=== PATIENT | male | born 1955 | race Caucasian/White ===

== ENCOUNTER 2023-02-11 23:21 | Emergency (ER) | payer BC, SELFPAY ==
[2023-02-11 23:25] VITALS: BP 155/89; PULSE 89; RESP 16; TEMP 35.9; O2SAT 96; BMI 23.7
[2023-02-11 23:29] VITALS: BP 155/89; PULSE 89; RESP 16; TEMP 35.9; O2SAT 96
--- NOTE | 2023-02-12 00:46 | EDS_ITS ---
HPI History of Present Illness Chief Complaint: Other, Pain/Inj Detail of Chief Complaint: Left forehead pain from recent shingles. Neuropathic pain. Informant: patient and spouse/S.O. Onset/Context/Timing Onset: Weeks Context: Gradual Onset Timing: Continuous Current Severity: Moderate Maximum Severity: Severe Narrative Narrative: 67-year-old male with history of diabetes. Diagnosed with left scalp shingles on January 22. At that time was treated with antivirals, prednisone and gabapentin. He initially got better but in the last 12 days he has had increased pain. He also followed up with an animal tech. He just states nothing is really controlling his pain well. He sits constantly there and it will pulsate and become a burning severe pain on his left forehead. He has tried Percocet, tramadol without any significant relief. They restarted him on acyclovir and prednisone again recently. He is also currently on gabapentin. The rash itself is much improved. Prior similar symptoms: Yes Recent Illness/Hospitalization: No PFSH PFSH Medical History Bone fracture Diabetes High blood pressure High cholesterol Seasonal allergies Home Medications Farxiga 10 mg tablet (dapagliflozin propanediol) 10 mg PO DAILY #30 tabs 12/26/20 [Rx Last Taken Unknown] flash glucose scanning reader #1 ea 12/26/20 [History Last Taken Unknown] flash glucose sensor #1 ea 12/26/20 [History Last Taken Unknown] OneTouch Ultra Test (blood sugar diagnostic) #100 ea 04/30/21 [Rx Last Taken Unknown] ezetimibe 10 mg tablet (Zetia) 10 mg PO DAILY #90 tabs 05/20/21 [Rx Last Taken Unknown] Dexcom G6 Director Of [employer] (blood-glucose meter,continuous) #1 ea 09/15/21 [Rx Last T ak Unknown] Dexcom G6 Sensor (blood-glucose sensor) #9 ea 09/28/22 [Rx Last Taken Unknown] Dexcom G6 Transmitter (blood-glucose transmitter) #1 ea 09/28/22 [Rx Last Taken Unknown] glimepiride 2 mg tablet 2 mg PO DAILY 12/28/22 [History Last Taken Unknown] insulin detemir U-100 100 unit/mL (3 mL) subcutaneous pen 40 unit subcut DAILY 12/28/22 [History Last Taken Unknown] insulin lispro 100 unit/mL subcutaneous pen 10 unit subcut QACDINNER 12/28/22 [History Last Taken Unknown] losartan 50 mg tablet 50 mg PO DAILY 12/28/22 [History Last Taken Unknown] metformin 1,000 mg tablet 1,000 mg PO BID 12/28/22 [History Last Taken Unknown] rosuvastatin 40 mg tablet 40 mg PO DAILY 12/28/22 [History Last Taken Unknown] Allergy/AdvReac Type Severity Reaction Status Date / Time No Known Allergies Allergy Verified 02/11/23 23:24 Family History Other CVA (cerebral vascular accident) Cervical cancer Diabetes Hypertension Social History Smoking Status: Never smoker alcohol intake: current alcohol intake frequency: holidays/special occasions only substance use type: does not use what type of physical activity do you participate in: walking frequency: daily ROS ROS ED ROS Narrative Denies recent illness. Left forehead shingles with neuropathic pain. Review of Systems ROS Unobtainable: Denies due to encephalopathy Constitutional Constitutional ED: Denies chills or fever(s) Eyes Eyes: Denies blurry vision ENT ENT ED: Denies ear pain Cardiovascular Cardiovascular: Denies chest pain Respiratory/Chest Respiratory/Chest: Denies cough or dyspnea Gastrointestinal Gastrointestinal: Denies abdominal pain, constipation, diarrhea, melena, nausea or vomiting Genitourinary Genitourinary ED: Denies dysuria or hematuria Musculoskeletal Musculoskeletal: Denies arthralgias Integumentary Denies abscess or Abrasions Neurologic Neurologic: Denies headache(s) Psychiatric Psychiatric: Denies anxiety or depression Endocrine Endocrinology: Denies cold intolerance Hematologic/Lymphatic Hematologic/Lymphatic: Reports none Allergic/Immunologic Allergic/Immunologic ED: Denies mouth swelling, tongue swelling or urticaria EXAM Physical Exam Narrative Exam Narrative: 67-year-old male. Vital signs are stable afebrile. Patient does not look septic or toxic. No distress. at bedside. H EENT exam pupils round and light his motions are intact. Resolving rash on his left forehead and nose scalp that previously was shingles. Currently there is no crusting. The rash is very faded. Neck nontender. Lungs are clear. Heart regular rhythm. Abdomen soft. Nontender. Moving all 4 extremities. Neurologically is awake alert with no focal motor deficits. Const Vital Signs: 02/11/23 23:25 02/11/23 23:29 02/11/23 23:48 Temperature 96.6 F L 96.6 F L Temperature Source Temporal Temporal Pulse Rate 89 89 Respiratory Rate 16 16 Respiratory Effort Normal Non-Labored Respiratory Pattern Normal Blood Pressure 155/89 H 155/89 H Blood Pressure Mean 111 111 Pulse Ox 96 96 Oxygen Delivery Method Room Air Room Air Positive well nourished and well developed; Negative for obese, cachectic, contractures or unkempt General Appearance ED: well developed and NAD; Negative for unkempt, cachectic, contractures, cyanotic, diaphoretic or pallor Nutritional Appearance: Negative for cachectic or obese HEENT Reports moist mucous membranes; Denies dry mucous membranes Negative for trauma or tenderness Mouth ED: No dry mucous membranes Mouth: No dry mucous membranes Eyes PERRL and EOMs intact bilaterally General Eye ED: Negative for pale conjunctiva or scleral icterus Neck no lymphadenopathy, supple and no JVD General: Negative for tenderness Lymph Lymphatic: Negative for other Chest Wall inspection of chest normal and palpation of chest normal Chest: Negative for other Resp normal respiratory effort and clear to auscultation bilaterally Effort and Inspection: Negative for retractions Auscultation: Negative for rales, rhonchi or wheezes Cardio regular rate, regular rhythm, S1 normal heart sound, S2 normal heart sound and no murmurs GI normal to inspection, nondistended, normoactive bowel sounds, non-tender, non- distended and no masses Inspection: Negative for abdominal distention Auscultation: normoactive bowel sounds Palpation: soft; Negative for tender or guarding Back/Spine no CVA tenderness General Back: Negative for CVA tenderness Cervical Spine: Negative for cervical spine tenderness Thoracic Spine / Upper Back: Negative for thoracic spinal tenderness Lumbar Spine / Lower Back: Negative for lumbar spinal tenderness Extremity normal to inspection General Extremety ED: Negative for edema or tenderness General Extremity: Negative for edema Neuro oriented x3 and CN's II-XII intact bilaterally Sensorium / Orientation: alert; Negative for orientation impaired, lethargic or stuporous Motor Exam: strength 5/5 throughout; Negative for general weakness or strength abnormal Psych mental status grossly normal Appearance: Negative for unkempt Attitude: No agitated Mood & Affect: Negative for depressed Skin No no rashes or lesions noted, no wounds and skin turgor normal Skin Narrative: Resolving shingles rash to left forehead. General Skin Exam: Negative for jaundice or pallor Lesions: No lesion noted Rashes: rashes noted Trauma: Negative for abrasion Wounds: Negative for wounds noted MDM MDM MDM Narrative Medical decision making narrative: 67-year-old male 3 weeks out of a shingles outbreak on his left forehead. Having worsening neuropathic pain. They have tried Percocet, tramadol without relief. Has had lidocaine patches without relief. Currently he is been restarted on his antiviral and on prednisone. He is also on gabapentin. He will be given IM shot of Dilaudid. I explained to both he and his there is really not managing bullet for this pain. They have a upcoming appointment to see a painter structural steel. History & Record Review Discussion w/independent historian: Patient and Family Discharge Plan Triage Chief Complaint: Other, Pain/Inj ED Provider: Xavi Hill Dx/Rx/DC Orders Clinical Impression: History of shingles, Neuropathic pain, History of diabetes mellitus Instructions: ED Shingles (Herpes Zoster) Prescriptions: No Action (DME) FreeStyle Marcos 14 Day Sensor Kit See Rx Instructions .ROUTE .MEDSUPPLY Qty: 1 Rx Instructions: As directed (DME) FreeStyle Marcos 14 Day Marion Misc See Rx Instructions .ROUTE .MEDSUPPLY Qty: 1 Rx Instructions: As directed Farxiga 10 mg tablet 10 mg PO DAILY Qty: 30 3RF metformin 1,000 mg tablet 1,000 mg PO BID losartan 50 mg tablet 50 mg PO DAILY rosuvastatin 40 mg tablet 40 mg PO DAILY insulin detemir U-100 100 unit/mL (3 mL) insulin pen 40 unit subcut DAILY insulin lispro 100 unit/mL insulin pen 10 unit subcut QACDINNER (DME) Dexcom G6 Director Of [employer] Research Misc See Rx Instructions .Route Qty: 1 0RF Rx Instructions: As directed glimepiride 2 mg tablet 2 mg PO DAILY (DME) OneTouch Ultra Test Strip See Rx Instructions .ROUTE .MEDSUPPLY Qty: 100 3RF Rx Instructions: As directed ezetimibe [Zetia] 10 mg tablet 10 mg PO DAILY Qty: 90 1RF (DME) Dexcom G6 Sensor Device See Rx Instructions .Route Qty: 9 1RF Rx Instructions: 1 sensor q 10 days (DME) Dexcom G6 Transmitter Device See Rx Instructions .Route Qty: 1 1RF Rx Instructions: 1 transmitter q 90 days Primary Care Provider: Geremias Kay Referrals: Geremias Kay MD [Primary Care Provider] - As Needed Activity Restrictions/Additional Instructions: Continue on your current medications. Follow-up with pain management. You may want to discuss with them possibly a nerve block. Disposition Disposition: Home, Self Care
--- OUTSIDE RECORDS SUMMARY | 2023-02-12 01:10 | XMS RPT_ITS | CCD ---
Author Name Unknown Address [address] [place] [address] Organization [facility] Care Team Providers Care Public Administration Teacher Name Role Phone Tali Tran MD Unavailable Unavailable Tali Tran Unavailable Unavailable Tali Tran Unavailable Unavailable Unavailable Tali Tran Referring Unavaila ble Tali Tran Primary Care Unavaila ble Tali Tran Attending Unavaila ble Tali Tran Referring Unavaila ble TranTali soriano Primary Care Unavaila ble Tali Tran Attending Unavaila Tali Morel MD Primary Care Provider Unavailable Tali Tran MD Primary Care Provider [phone] Tali Tran MD Unavailable Tali Tran MD Primary Care Provider Tali Tran MD Primary Care Provider Tali Tran MD Unavailable TALI TRAN Attending Unavailable TALI TRAN Primary Care Unavailable TALI TRAN Attending Unavailable TALI TRAN Primary Care Unavailable Sue Lanier OD Unavailable TALI TRAN Primary Care Unavaila ble PEDRO LUIS FITZGERALD Attending Unavailable SUE LANIER Attending Unavailabl e TALI TRAN Referring Unavaila ble TRANTALI Soriano Primary Care Unavaila ble SUE LANIER Attending Unavailabl e TALI TRAN Primary Care UnavailTali Mcpherson MD Primary Care Provider Medications Current Medications Medication Drug Class(es) Dates Sig (Normalized) Sig (Original) acetaminophen 325 mg / oxyCODONE hydrochloride 5 mg oral tablet (1 source) Opioid Agonist Start: 02-07-2023 End: 02-10-2023 take 1 tablet by mouth every six hours for pain oxyCODONE-acetamin ophen (Percocet) 5-325 mg tablet Indications: Postherpetic neuralgia Take 1 tablet by mouth every 6 hours if needed for severe pain (7 - 10) for up to 3 days. 5 tablet 0 02/07/2023 02/10/2023 Active dapagliflozin 10 mg oral tablet (7 sources) Sodium-Glucose Cotransporter 2 Inhibitor Start: 05-23-2021 take 1 tablet by mouth once daily before mealtime dapagliflozin (Farxiga) 10 mg Take 1 tablet (10 mg) by mouth once daily in the morning. Take before meals. 0 05/23/2021 Active gabapentin 300 mg oral capsule (1 source) Anti-epileptic Agent Start: 02-03-2023 gabapentin (Neurontin) 300 mg capsule Indications: PHN (postherpetic neuralgia) One a night for 1 week, then 1 twice a day for a week, then 1 three times a day 90 capsule 5 02/03/2023 Active glimepiride 2 mg oral tablet (7 sources) Sulfonylurea Start: 05-23-2021 take 1 tablet by mouth once daily glimepiride (Amaryl) 2 mg tablet Take 1 tablet (2 mg) by mouth once daily. 0 05/23/2021 Active insulin lispro (HumaLOG) 100 unit/mL injection (3 sources) Start: 07-25-2019 inject 10 [IU] by subcutaneous injection once daily before mealtime insulin lispro (HumaLOG) 100 unit/mL injection Inject 10 Units under the skin once daily in the evening. Take before meals. 0 07/25/2019 Active losartan potassium 50 mg oral tablet (17 sources) Angiotensin 2 Receptor Dominguez Start: 04-18-2019 End: 01-22-2024 take 1 tablet by mouth once daily losartan (Cozaar) 50 mg tablet Indications: Primary hypertension Take 1 tablet (50 mg) by mouth once daily. 90 tablet 3 01/22/2023 01/22/2024 Active Completed/Discontinued Medications Medication Drug Class(es) Dates Sig (Normalized) Sig (Original) doxycycline hyclate 100 mg oral tablet (1 source) Tetracycline-cla ss Drug Start: 08-07-2019 take 1 tablet by mouth once daily Doxycycline Hyclate 100 MG Oral Tablet TAKE 1 TABLET EVERY 12 HOURS DAILY. Quantity: 14 Refills: 0 Ordered: 10-Apr-2022 Tali Tran MD Start : 07-Aug-2019 Active FreeStyle Marcos 14 Day [place] Device (1 source) Start: 05-24-2020 FreeStyle Marcos 14 Day [place] Device USE DIRECTED Quantity: 1 Refills: 0 Tali Tran MD Start : 24-May-2020 Active FreeStyle Marcos 14 Day Sensor (1 source) Start: 05-24-2020 FreeStyle Marcos 14 Day Sensor USE 1 SENSOR EVERY 14 DAYS Quantity: 6 Refills: 3 Tali Tran MD Start : 24-May-2020 Active 1 ml HYDROmorphone hydrochloride 1 mg/ml cartridge (1 source) Opioid Agonist Start: 02-07-2023 End: 02-07-2023 HYDROmorphone (Dilaudid) injection 1 mg 3 ml insulin degludec 100 unt/ml pen injector (5 sources) Insulin Analog Start: 02-17-2018 insulin degludec (TRESIBA FLEXTOUCH U-100) 100 unit/mL (3 mL) injection pen 3 ml insulin detemir 100 unt/ml pen injector (16 sources) Insulin Analog Start: 11-04-2020 LEVEMIR FLEXTOUCH U-100 INSULIN 100 unit/mL (3 mL) injection pen Problems Active Problems Problem Classification Problem Date Documented Da te Episodic/Chronic Blindness and vision defects (6 sources) Bilateral myopia of eyes; Translations: [Myopia, bilateral] Episodic Cataract (8 sources) Bilateral senile combined form cataracts of eyes; Translations: [Combined forms of age-related cataract, bilateral] Onset: 11-11-2020 Chronic Diabetes mellitus without complication (20 sources) Type 2 diabetes mellitus; Translations: [Diabetes mellitus without mention of complication, type II or unspecified type, not stated as uncontrolled] Onset: 11-11-2020 Chronic Disorders of lipid metabolism (15 sources) Hyperlipidemia; Translations: [Other and unspecified hyperlipidemia] Onset: 06-01-2022 06-02-2022 Chronic Essential hypertension (17 sources) Hypertensive disorder; Translations: [Unspecified essential hypertension] Onset: 06-01-2022 06-02-2022 Chronic Glaucoma (2 sources) Ocular hypertension; Translations: [Ocular hypertension, bilateral] Onset: 01-29-2023 01-29-2023 Chronic Immunizations and screening for infectious disease (20 sources) Patient encounter status; Translations: [Other specified vaccination] Episodic Inflammation; infection of eye (except that caused by tuberculosis or sexually transmitteddisease) (4 sources) Herpes zoster ophthalmicus; Translations: [Zoster ocular disease, unspecified] Onset: 01-29-2023 01-29-2023 Episodic Other eye disorders (1 source) Bilateral vitreous floaters; Translations: [Other vitreous opacities, bilateral] 01-04-2023 Chronic Other male genital disorders (5 sources) Secondary erectile dysfunction; Translations: [Erectile dysfunction due to diseases classified elsewhere] Onset: 06-02-2022 06-02-2022 Chronic Other male genital disorders (1 source) Erectile dysfunction due to diseases classified elsewhere; Translations: [Erectile dysfunction due to diseases classified elsewhere] Onset: 06-02-2022 Chronic Viral infection (5 sources) Herpes zoster without complication; Translations: [Zoster without complications] Onset: 01-22-2023 01-22-2023 Episodic Past or Other Problems Problem Classification Problem Date Documented Da te Episodic/Chronic E Codes: Natural/environment (8 sources) Tick bite; Translations: [Insect bite, nonvenomous, of other, multiple, and unspecified sites, without mention of infection] Resolved: 10-27-2019 Episodic Unclassified (2 sources) Onset: 12-02-2022 12-02-2022 NEGATED: Highlighted row has not occurred!Residual codes; unclassified (3 sources) Disease Episodic Results Test Name Value Interpretation Reference Range Facil ity Vital Signs Date Time Vital Sign Value Performing Clinician Faci litiris 02-07-2023 16:39-0500 Diastolic blood pressure 83 mm[Hg] Kenton Levin DO Work Phone: [facility] 02-07-2023 16:39-0500 Heart rate 79 /min Kenton Levin DO Work Phone: [facility] 02-07-2023 16:39-0500 Respiratory rate 18 /min Kenton Levin DO Work Phone: [facility] 02-07-2023 16:39-0500 SaO2% (BldA) [Mass fraction] 97 % Kenton Levin DO Work Phone: [facility] 02-07-2023 16:39-0500 Systolic blood pressure 142 mm[Hg] Kenton Levin DO Work Phone: [facility] 02-07-2023 15:25-0500 Body height 188 cm Kenton Levin DO Work Phone: [facility] 02-07-2023 15:25-0500 Body mass index (BMI) [Ratio] 24.65 kg/m2 Kenton Levin DO Work Phone: [facility] 02-07-2023 15:25-0500 Body temperature 97.5 [degF] Kenton Levin DO Work Phone: [facility] 02-07-2023 15:25-0500 Body weight 87.09 kg Kenton Levin DO Work Phone: [facility] 01-22-2023 11:10-0500 Body height 188 cm Tali Tran MD Work Phone: [facility] 01-22-2023 11:10-0500 Body mass index (BMI) [Ratio] 25.16 kg/m2 Tali Tran MD Work Phone: [facility] 01-22-2023 11:10-0500 Body weight 88.91 kg Tali Tran MD Work Phone: [facility] 01-22-2023 11:10-0500 Diastolic blood pressure 82 mm[Hg] Tali Tran MD Work Phone: [facility] 01-22-2023 11:10-0500 Heart rate 80 /min Tali Tran MD Work Phone: [facility] 01-22-2023 11:10-0500 SaO2% (BldA) [Mass fraction] 95 % Tali Tran MD Work Phone: [facility] 01-22-2023 11:10-0500 Systolic blood pressure 140 mm[Hg] Tali Tran MD Work Phone: [facility] 06-02-2022 08:19-0400 Body height 188 cm Tali Tran MD Work Phone: [facility] 06-02-2022 08:19-0400 Body mass index (BMI) [Ratio] 25.08 kg/m2 Tali Tran MD Work Phone: [facility] 06-02-2022 08:19-0400 Body weight 88.59 kg Tali Tran MD Work Phone: [facility] 06-02-2022 08:19-0400 Diastolic blood pressure 80 mm[Hg] Tali Tran MD Work Phone: [facility] 06-02-2022 08:19-0400 Heart rate 68 /min Tali Tran MD Work Phone: [facility] 06-02-2022 08:19-0400 SaO2% (BldA) [Mass fraction] 94 % Tali Tran MD Work Phone: [facility] 06-02-2022 08:19-0400 Systolic blood pressure 140 mm[Hg] Tali Tran MD Work Phone: [facility] 11-25-2021 08:25-0400 Body height 187.96 cm Tali Tran Work Phone: -[facility] Work Phone: 11-25-2021 08:25-0400 Body mass index (BMI) [Ratio] 24.98 kg/m2 Tali Tran Work Phone: -[facility] Work Phone: 11-25-2021 08:25-0400 Body surface area Derived from formula 2.15 m2 Tali Tran Work Phone: [facility] Work Phone: 11-25-2021 08:25-0400 Body weight 88.25 kg Tali Tran Work Phone: [facility] Work Phone: 11-25-2021 08:25-0400 Diastolic blood pressure 90 mm[Hg] Tali Tran Work Phone: [facility] Work Phone: 11-25-2021 08:25-0400 Heart rate 67 /min Tali Tran Work Phone: [facility] Work Phone: 11-25-2021 08:25-0400 SaO2% (BldA) [Mass fraction] 95 % Tali Tran Work Phone: -[facility] [employer] [facility] Work Phone: 11-25-2021 08:25-0400 Systolic blood pressure 130 mm[Hg] Tali Tran Work Phone: -[facility] [employer] [facility] Work Phone: 05-23-2021 08:21-0400 Body height 187.96 cm Tali Tran Work Phone: [facility] Work Phone: 05-23-2021 08:21-0400 Body mass index (BMI) [Ratio] 24.92 kg/m2 Tali Tran Work Phone: [facility] Work Phone: 05-23-2021 08:21-0400 Body surface area Derived from formula 2.15 m2 Tali Tran Work Phone: [facility] Work Phone: 05-23-2021 08:21-0400 Body weight 88.06 kg Tali Tran Work Phone: [facility] Work Phone: 05-23-2021 08:21-0400 Diastolic blood pressure 72 mm[Hg] Tali Tran Work Phone: [facility] Work Phone: 05-23-2021 08:21-0400 Heart rate 64 /min Tali Tran Work Phone: [facility] Work Phone: 05-23-2021 08:21-0400 SaO2% (BldA) [Mass fraction] 96 % Tali Tran Work Phone: [facility] Work Phone: 05-23-2021 08:21-0400 Systolic blood pressure 140 mm[Hg] Tali Tran Work Phone: [facility] Work Phone: 11-22-2020 08:10-0400 Body height 187.96 cm Tali Tran Work Phone: [facility] Work Phone: 11-22-2020 08:10-0400 Body mass index (BMI) [Ratio] 24.27 kg/m2 Tali Tran Work Phone: [facility] Work Phone: 11-22-2020 08:10-0400 Body surface area Derived from formula 2.12 m2 Tali Tran Work Phone: [facility] Work Phone: 11-22-2020 08:10-0400 Body temperature 97.1 [degF] Tali Tran Work Phone: [employer] [employer] [facility] Work Phone: 11-22-2020 08:10-0400 Body weight 85.76 kg Tali Tran Work Phone: [employer] [facility] Work Phone: 11-22-2020 08:10-0400 Diastolic blood pressure 72 mm[Hg] Tali Tran Work Phone: [employer] [facility] Work Phone: 11-22-2020 08:10-0400 Heart rate 66 /min Tali Tran Work Phone: [employer] [facility] Work Phone: 11-22-2020 08:10-0400 SaO2% (BldA) [Mass fraction] 96 % Tali Tran Work Phone: [employer] [facility] Work Phone: 11-22-2020 08:10-0400 Systolic blood pressure 140 mm[Hg] Tali Tran Work Phone: [employer] [facility] Work Phone: 05-24-2020 10:25-0400 Body height 187.96 cm Tali Tran MD [facility] [employer] Work Phone: 05-24-2020 10:25-0400 Body mass index (BMI) [Ratio] 24.78 kg/m2 Tali Tran MD [facility] [employer] Work Phone: 05-24-2020 10:25-0400 Body surface area Derived from formula 2.14 m2 Tali Tran MD [facility] [employer] Work Phone: 05-24-2020 10:25-0400 Body temperature 97.5 [degF] Tali Tran MD [facility] [employer] Work Phone: 05-24-2020 10:25-0400 Body weight 87.54 kg Tali Tran MD [facility] [employer] Work Phone: 05-24-2020 10:25-0400 Diastolic blood pressure 74 mm[Hg] Tali Tran MD [facility] [employer] Work Phone: 05-24-2020 10:25-0400 Heart rate 70 /min Tali Tran MD [facility] [employer] Work Phone: 05-24-2020 10:25-0400 SaO2% (BldA) [Mass fraction] 97 % Tali Tran MD [facility] [employer] Work Phone: 05-24-2020 10:25-040 Systolic blood pressure 140 mm[Hg] Tali Tran MD [facility] [employer] Work Phone: Encounters Encounter Date Encounter Type Care Provider Facility Start: 02-07-2023 End: 02-07-2023 Emergency department patient visit Kenton G Ollie DIOP Work Phone: [facility] Emergency Medicine Procedures Date Procedure Procedure Detail Performing Clinician Start: 01-29-2023 Computerized ophthal alejandrina imaging optic nerve Pedro Luis Fitzgerald MD Work Phone: Start: 11-26-2022 Lipid 1996 panel - S landry or Plasma Tali Tran MD Work Phone: Colonoscopy Tali soriano MD Plan of Treatment Date Care Activity Detail Author Start: 11-27-2027 Prostate Cancer Screening Discussion Prostate Cancer Screening Discussion [facility] Start: 11-27-2027 Prostate specific antigen measurement Prostate Cancer Screening Discussion [facility] Start: 01-30-2024 Glaucoma screening Dilated Retinal Exam [facility] Start: 01-05-2024 Glaucoma screening Diabetes: Retinopathy Screening [facility] Start: 01-05-2024 Hepatitis C antibody, confirmatory test Dilated Retinal Exam [facility] Start: 11-27-2023 Hepatitis B surface antibody level LDL Cholesterol [facility] Start: 11-27-2023 Lipid panel Lipid Panel [facility] Start: 11-27-2023 Urine screening for protein Diabetes: Urine Protein Screening [facility] Start: 06-09-2023 End: 06-09-2023 Patient encounter procedure 06/09/2023 8:00 AM EDT Office Visit [facility] [address] [place] [id number] Tali Tran MD [address] [place] [address] [facility] Start: 02-26-2023 Hemoglobin A1c measurement Diabetes: Hemoglobin A1C [facility] Start: 12-22-2022 Hepatitis C antibody, confirmatory test DILATED RETINAL EXAM [facility] Start: 11-01-2022 Screening for malignant neoplasm of colon [facility] Start: 10-16-2022 Covid-19 Vaccine () Covid-19 Vaccine () [facility] Start: 10-16-2022 Influenza vaccination [facility] Start: 06-02-2022 EPV, Provider: Tali Tran, Status: Pen, Time: 8:20 AM EPV, Provider: Tali Tran, Status: Pen, Time: 8:20 AM -[facility] Work Phone: Start: 02-15-2022 Advance Directive Discussion Advance Directive Discussion [facility] Start: 02-15-2022 Depression Assessment Depression Assessment [facility] Start: 11-25-2021 EPV, Provider: Tali Tran, Status: Pen, Time: 8:20 AM EPV, Provider: Tali Tran, Status: Pen, Time: 8:20 AM [facility] Work Phone: Start: 10-16-2021 Influenza vaccination INFLUENZA (#1) [facility] Start: 2021 ADVANCE DIRECTIVE DISCUSSION ADVANCE DIRECTIVE DISCUSSION [facility] Start: 2021 PNEUMOCOCCAL: 65+ (1 - PCV) PNEUMOCOCCAL: 65+ (1 - PCV) [facility] Start: 05-23-2021 EPV, Provider: Tali Tran, Status: Pen, Time: 8:20 AM EPV, Provider: Tali Tran, Status: Pen, Time: 8:20 AM [facility] Work Phone: Start: 02-28-2021 COVID-19 VACCINE (4 - Booster for Moderna series) COVID-19 VACCINE (4 - Booster for Moderna series) [facility] Start: 02-28-2021 COVID-19 Vaccine (4 - Moderna series) COVID-19 Vaccine (4 - Moderna series) [facility] Start: 02-15-2021 DEPRESSION ASSESSMENT DEPRESSION ASSESSMENT [facility] Start: 11-22-2020 EPV, Provider: Tali Tran, Status: Pen, Time: 8:20 AM EPV, Provider: Tali Tran, Status: Pen, Time: 8:20 AM [facility] Work Phone: Start: 05-24-2020 Albumin, Urine Spot Albumin, Urine Spot [facility] Work Phone: Start: 05-24-2020 Assay of thyroid stimulating hormone tsh TSH - Thyroid Stimulating Hormone, Serum [facility] Work Phone: Start: 05-24-2020 Comprehensive metabolic 2000 panel - Serum or Plasma Comprehensive Metabolic Panel [facility] [employer] [facility] Work Phone: Start: 05-24-2020 Hemoglobin glycosylated a1c Hemoglobin A1C [facility] Work Phone: Start: 05-24-2020 Lipid panel Lipid Panel [facility] [employer] Phone: Start: 05-24-2020 PSA screening Prostate Spec.Ag, Screen [facility] Work Phone: Start: 2016 Hepatitis B Vaccine (1 of 3 - Risk 3-dose series) Hepatitis B Vaccine (1 of 3 - Risk 3-dose series) [facility] Start: 2016 RSV Vaccine (1 - 1-dose 60+ series) RSV Vaccine (1 - 1-dose 60+ series) [facility] Start: 09-06-2011 PROSTATE CANCER SCREENING DISCUSSION PROSTATE CANCER SCREENING DISCUSSION [facility] Start: 2006 SHINGRIX VACCINE (1 of 2) SHINGRIX VACCINE (1 of 2) [facility] Start: 2006 Zoster Vaccines (1 of 2) Zoster Vaccines (1 of 2) [facility] Start: 2001 COLOGUARD (FIT-DNA) COLOGUARD (FIT-DNA) [facility] Start: [address] [facility] Start: 2001 COLORECTAL CANCER SCREENING COLORECTAL CANCER SCREENING [facility] Start: [address] [facility] Start: 2001 FECAL OCCULT BLOOD FECAL OCCULT BLOOD [facility] Start: 2001 Screening for malignant neoplasm of colon [facility] Start: [address] [facility] Start: 1978 DTaP/Tdap/Td Vaccines (1 - Tdap) DTaP/Tdap/Td Vaccines (1 - Tdap) [facility] Start: 09-06-[address] [facility] Start: 09-06-1975 Urine screening for protein Diabetes: Urine Protein Screening [facility] Start: 1974 Annual PCP Team Chronic Disease Visit Annual PCP Team Chronic Disease Visit [facility] Start: 1974 BP Controlled (<130/80) BP Controlled (<130/80) [facility] Start: 1974 Hepatitis B surface antibody level LDL CHOLESTEROL [facility] Start: 1974 HEPATITIS C SCREENING HEPATITIS C SCREENING [facility] Start: 1974 Hepatitis C screening Hepatitis C Screening [facility] Start: 1974 HIV SCREENING HIV SCREENING [facility] Start: 1966 3 comp foot exam completed DIABETIC FOOT EXAM [facility] Start: 1966 Diabetic foot examination [facility] Start: 1966 Hepatitis B screening URINE ALBUMIN:CREATININE RATIO [facility] Start: 1966 Ophthalmic examination and evaluation Diabetes: Retinopathy Screening [facility] Start: 1961 Hemoglobin A1c measurement HbA1C [facility] Start: 1961 Hemoglobin A1c/Hemoglobin.total in Blood HBA1C [facility] Start: 1956 Annual wellness visit Medicare Initial Physical (IPPE) [facility] Start: 1956 Hemoglobin A1c measurement Diabetes: Hemoglobin A1C [facility] Start: 1956 Lipid panel Lipid Panel [facility] Start: 1956 Screening for malignant neoplasm of colon [facility] Start: 1956 Yearly Adult Physical Yearly Adult Physical [facility] Assay of thyroid stimulating hormone tsh TSH - Thyroid Stimulating Hormone, Serum [facility] [employer] Work Phone: Immunizations Immunization Date Immunization Notes Care Provider Denise valejoshua 11-25-2021 Prevnar 20 0.5 ML Intramuscular Suspension Prefilled Syringe; Translations: [Prevnar 20 0.5 ML Intramuscular Suspension Prefilled Syringe] Tali Tran Work Phone: [facility] Work Phone: Payers Date Payer Category Payer Medicare MEDICARE MEDICAR E PART A [id number] 2021-Present [address] [place] [address] [id number] 2021 Unknown 2021 Unknown [id number] 1955 Unknown [id number] 1956 Unknown [id number] 1956 Unknown [id number] 1956 Unknown [id number] Medicare [id number] Social History Date Type Detail Facility Assertion Tobacco smoking consumption unknown (finding) [facility] [employer] Work Phone: Start: 01-04-2023 End: 01-22-2023 Non-smoker Non-smoker -[employer] [facility] Work Phone: Start: 11-11-2020 End: 12-02-2022 Tobacco smoking status NHIS Never smoked tobacco [facility] Start: 11-11-2020 End: 12-02-2022 Tobacco use and exposure Smokeless tobacco non-user [facility] Start: 12-22-2021 End: 01-22-2023 Alcohol intake Ex-drinker (finding) [facility] Start: 1955 Sex Assigned At Not on file [facility] Start: 12-12-2021 End: 02-07-2023 Exposure to SARS-CoV-2 (event) Not sure [facility] Start: 01-04-2023 End: 01-22-2023 Gender identity Not on file [facility] Work Phone: National Score (1-100), lower number is lower risk [address] [facility] NEGATED: Highlighted rowStart: NINF History of tobacco use Passive smoker [facility] Work Phone: Medical Equipment Procedure Code Equipment Code Equipment Origin al Text Equipment Identifier Dates Blood Glucose Te st In Vitro Strip TEST BG ONCE DAILY DX E11.9 Quantity: 100 Refills: 3 Tali Tran MD Start : 18-Apr-2019 Active Start: 04-18-2019 Lancets TEST BG ONCE DAILY DX E11.9 Quantity: 100 Refills: 3 Start : 18-Apr-2019 Active Start: 04-18-2019 Functional Status Date Assessment Result Facility NEGATED: Highlighted row Functional performance Functional status health issues are not documented Disease [facility] [employer] Work Phone: Mental Status Date Assessment Result Facility NEGATED: Highlighted row Cognitive function [Interpretation] Cognitive status health issues are not documented Disease [facility] Work Phone: Clinical Notes 11-23-2019 to 02-07-2023 Kenton Levin DO - 02/07/2023 3:18 PM Kimani Levin DO - 02/07/2023 3:18 PM ESTPatient InstructionsPedro Luis Fitzgerald MD - 01/29/2023 4:14 PM ESTPatient InstructionsPatient Instructions Note Date & Type Note Facility 02-07-2023 Emergency department Note HPI Chief Complaint Patient presents with Facial Pain Patient states he was diagnosed with shingles 2 weeks ago on the left side of his face, states lesions have improved but started to have pain on Wednesday and states pain is severe. He is taking gabapentin and was given Tramadol on Wednesday without improvement Patient presents to the emergency department secondary to facial pain. Further history reveals the patient was diagnosed with herpes zoster several weeks ago. He was treated with antivirals and is currently taking gabapentin. He was also seen and cleared by ophthalmology. The patient states that his rash went away sometime ago however he still having pain in the distribution of where the rash once was. He states that tramadol is not helping his pain. He describes it as a burning, prickling pain over the left side of the scalp and face. 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 used: No Jinny Coma Scale Score: 15 Patient History Past Medical History: Diagnosis Date Bitten or stung by nonvenomous insect and other nonvenomous arthropods, initial encounter 08/07/2019 Tick bite Past Surgical History: Procedure Laterality Date OTHER SURGICAL HISTORY 04/18/2019 Tibia fracture repair OTHER SURGICAL HISTORY 04/18/2019 Colonoscopy OTHER SURGICAL HISTORY 04/18/2019 Fracture repair OTHER SURGICAL HISTORY 04/18/2019 Vasectomy Family History Problem Relation Name Age of Onset Diabetes type II Mother Diabetes type II Father Hypertension Father Social History Tobacco Use Smoking status: Never Passive exposure: Never Smokeless tobacco: Never Vaping Use Vaping Use: Never used Substance Use Topics Alcohol use: Not Currently Drug use: Defer Physical Exam ED Triage Vitals [02/07/23 1525] Temp Heart Rate Resp BP 36.4 C (97.5 F) 89 17 154/86 SpO2 Temp src Heart Rate Source Patient Position 93 % -- Monitor -- BP Location FiO2 (%) -- -- Physical Exam Vitals and nursing note reviewed. Constitutional: General: He is not in acute distress. Appearance: Normal appearance. He is normal weight. He is not ill-appearing, toxic-appearing or diaphoretic. HENT: Head: Normocephalic and atraumatic. Nose: Nose normal. No rhinorrhea. Eyes: Extraocular Movements: Extraocular movements intact. Conjunctiva/sclera: Conjunctivae normal. Pupils: Pupils are equal, round, and reactive to light. Comments: Left eye is grossly unremarkable. Pupils are equal. No erythema to the sclera. Neck: Comments: Trachea is midline Cardiovascular: Rate and Rhythm: Normal rate and regular rhythm. Heart sounds: No murmur heard. Pulmonary: Effort: Pulmonary effort is normal. Breath sounds: Normal breath sounds. No wheezing. Abdominal: General: Abdomen is flat. Bowel sounds are normal. There is no distension. Palpations: Abdomen is soft. Tenderness: There is no abdominal tenderness. Musculoskeletal: General: Normal range of motion. Cervical back: Normal range of motion. Skin: General: Skin is warm and dry. Findings: No lesion or rash. Comments: There are no facial skin lesions of any kind. No evidence of cellulitis Neurological: General: No focal deficit present. Mental Status: He is alert and oriented to person, place, and time. Mental status is at baseline. Psychiatric: Mood and Affect: Mood normal. Behavior: Behavior normal. Thought Content: Thought content normal. Judgment: Judgment normal. ED Course & MDM Diagnoses as of 02/07/231610 Postherpetic neuralgia Medical Decision Making Patient's history and physical examination is suggestive of postherpetic neuralgia. Patient will be given IM Dilaudid here and a prescription for Percocet. The patient was specifically instructed by myself to not take Percocet and tramadol at the same time. Instructed to continue gabapentin and follow-up with his private physician. Return if worse. Procedure Procedures Kenton Levin DO 02/07/231610 documented in this encounter [facility] Work Phone: 02-07-2023 Physician Emergency department Note HPI Chief Complaint Patient presents with Facial Pain Patient states he was diagnosed with shingles 2 weeks ago on the left side of his face, states lesions have improved but started to have pain on Wednesday and states pain is severe. He is taking gabapentin and was given Tramadol on Wednesday without improvement Patient presents to the emergency department secondary to facial pain. Further history reveals the patient was diagnosed with herpes zoster several weeks ago. He was treated with antivirals and is currently taking gabapentin. He was also seen and cleared by ophthalmology. The patient states that his rash went away sometime ago however he still having pain in the distribution of where the rash once was. He states that tramadol is not helping his pain. He describes it as a burning, prickling pain over the left side of the scalp and face. 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 used: No Jinny Coma Scale Score: 15 Patient History Past Medical History: Diagnosis Date Bitten or stung by nonvenomous insect and other nonvenomous arthropods, initial encounter 08/07/2019 Tick bite Past Surgical History: Procedure Laterality Date OTHER SURGICAL HISTORY 04/18/2019 Tibia fracture repair OTHER SURGICAL HISTORY 04/18/2019 Colonoscopy OTHER SURGICAL HISTORY 04/18/2019 Fracture repair OTHER SURGICAL HISTORY 04/18/2019 Vasectomy Family History Problem Relation Name Age of Onset Diabetes type II Mother Diabetes type II Father Hypertension Father Social History Tobacco Use Smoking status: Never Passive exposure: Never Smokeless tobacco: Never Vaping Use Vaping Use: Never used Substance Use Topics Alcohol use: Not Currently Drug use: Defer Physical Exam ED Triage Vitals [02/07/23 1525] Temp Heart Rate Resp BP 36.4 C (97.5 F) 89 17 154/86 SpO2 Temp src Heart Rate Source Patient Position 93 % -- Monitor -- BP Location FiO2 (%) -- -- Physical Exam Vitals and nursing note reviewed. Constitutional: General: He is not in acute distress. Appearance: Normal appearance. He is normal weight. He is not ill-appearing, toxic-appearing or diaphoretic. HENT: Head: Normocephalic and atraumatic. Nose: Nose normal. No rhinorrhea. Eyes: Extraocular Movements: Extraocular movements intact. Conjunctiva/sclera: Conjunctivae normal. Pupils: Pupils are equal, round, and reactive to light. Comments: Left eye is grossly unremarkable. Pupils are equal. No erythema to the sclera. Neck: Comments: Trachea is midline Cardiovascular: Rate and Rhythm: Normal rate and regular rhythm. Heart sounds: No murmur heard. Pulmonary: Effort: Pulmonary effort is normal. Breath sounds: Normal breath sounds. No wheezing. Abdominal: General: Abdomen is flat. Bowel sounds are normal. There is no distension. Palpations: Abdomen is soft. Tenderness: There is no abdominal tenderness. Musculoskeletal: General: Normal range of motion. Cervical back: Normal range of motion. Skin: General: Skin is warm and dry. Findings: No lesion or rash. Comments: There are no facial skin lesions of any kind. No evidence of cellulitis Neurological: General: No focal deficit present. Mental Status: He is alert and oriented to person, place, and time. Mental status is at baseline. Psychiatric: Mood and Affect: Mood normal. Behavior: Behavior normal. Thought Content: Thought content normal. Judgment: Judgment normal. ED Course & MDM Diagnoses as of 02/07/23 1611 Postherpetic neuralgia Medical Decision Making Patient's history and physical examination is suggestive of postherpetic neuralgia. Patient will be given IM Dilaudid here and a prescription for Percocet. The patient was specifically instructed by myself to not take Percocet and tramadol at the same time. Instructed to continue gabapentin and follow-up with his private physician. Return if worse. Procedure Procedures Kenton Levin DO 02/07/231610 [facility] Work Phone: 01-29-2023 Note HNO ID: [id number] Author: Pedro Luis Fitzgerald MD Service: ? Author Type: Physician Type: Progress Notes Filed: 01/29/2023 4:52 PM Note Text: ASSESSMENT/PLAN: 1. 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 Herpes zoster pseudodendrites/left eye - ICD9: 053.29, ICD10: B02.39 Continue Valtrex and oral Prednisone as directed by Dr. Tran Continue: Systane Complete Artificial Tears - Use 1 Drop into both eyes three times a day. Begin: Genteal gel, one application at bedtime 3. Ocular hypertension, bilateral - ICD9: 365.04, ICD10: H40.053 Visual field next visit 4. Type 2 diabetes mellitus without retinopathy (HCC) - ICD9: 250.00, ICD10: E11.9 Continue Diabetes Mellitus care with Dr. Tran Please keep your blood sugar under good control to minimize risk of ocular complications from diabetes. 5. Combined form of senile cataract of both eyes - ICD9: 366.19, ICD10: H25.813 Not visually significant at this time 6. Essential hypertension - ICD9: 401.9, ICD10: I10 Continue care with primary care physician Pedro Luis Fitzgerald MD I have confirmed and edited as necessary the relevant ophthalmic history, review of systems, surgical history, and ophthalmological examination findings as obtained by the ophthalmic technical staff. I have seen and examined Neo Cole. I have discussed the examination findings, diagnosis, and treatment options with Neo Cole and/or his family. I have also reviewed and agree with the assessment and plan as stated above and agree with all its relevant components. I gave the patient the opportunity to ask questions about the findings, diagnosis, and treatment options. [facility] 01-29-2023 Instructions Pedro Luis Fitzgerald MD - 01/29/2023 4:51 PM EST Continue Valtrex and oral Prednisone as directed by Dr. Tran Continue: Systane Complete Artificial Tears - Use 1 Drop into both eyes three times a day. Begin: Genteal gel, one application at bedtime If you have any questions please contact our office at [phone]. After office hours or on the weekend, please call Dr. Fitzgerald on his cell phone at [phone]. documented in this encounter [facility] 01-29-2023 History of Presen t illness Narrative ASSESSMENT/PLAN: 1. 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 Herpes zoster pseudodendrites/left eye - ICD9: 053.29, ICD10: B02.39 Continue Valtrex and oral Prednisone as directed by Dr. Tran Continue: Systane Complete Artificial Tears - Use 1 Drop into both eyes three times a day. Begin: Genteal gel, one application at bedtime 3. Ocular hypertension, bilateral - ICD9: 365.04, ICD10: H40.053 Visual field next visit 4. Type 2 diabetes mellitus without retinopathy (HCC) - ICD9: 250.00, ICD10: E11.9 Continue Diabetes Mellitus care with Dr. Tran Please keep your blood sugar under good control to minimize risk of ocular complications from diabetes. 5. Combined form of senile cataract of both eyes - ICD9: 366.19, ICD10: H25.813 Not visually significant at this time 6. Essential hypertension - ICD9: 401.9, ICD10: I10 Continue care with primary care physician Pedro Luis Fitzgerald MD I have confirmed and edited as necessary the relevant ophthalmic history, review of systems, surgical history, and ophthalmological examination findings as obtained by the ophthalmic technical staff. I have seen and examined Neo Cole. I have discussed the examination findings, diagnosis, and treatment options with Neo Cole and/or his family. I have also reviewed and agree with the assessment and plan as stated above and agree with all its relevant components. I gave the patient the opportunity to ask questions about the findings, diagnosis, and treatment options. documented in this encounter [facility] 01-25-2023 Note HNO ID: [id number] Author: Sue Lanier OD Service: ? Author Type: APPRAISAL ANALYST Type: Progress Notes Filed: 01/25/2023 11:57 AM Note Text: ASSESSMENT/PLAN: 1. HZV (herpes zoster virus) post herpetic neuralgia - ICD9: 053.19, ICD10: B02.29 Current Ophthalmic Meds valACYclovir (VALTREX) 1 gram tablet As directed by Dr. Tran Suggested artificial tears three times a day. Return as directed. Sue Lanier OD I have confirmed and edited as necessary the relevant ophthalmic history, ROS, and the neuro exam findings as obtained by others. I have seen and examined this patient. [facility] 01-25-2023 Instructions Sue Lanier OD - 01/25/2023 11:55 AM EST ASSESSMENT/PLAN: 1. HZV (herpes zoster virus) post herpetic neuralgia - ICD9: 053.19, ICD10: B02.29 Current Ophthalmic Meds valACYclovir (VALTREX) 1 gram tablet As directed by Dr. Tran Suggested artificial tears three times a day. Return as directed. documented in this encounter [facility] 01-25-2023 History of Presen t illness Narrative ASSESSMENT/PLAN: 1. HZV (herpes zoster virus) post herpetic neuralgia - ICD9: 053.19, ICD10: B02.29 Current Ophthalmic Meds valACYclovir (VALTREX) 1 gram tablet As directed by Dr. Tran Suggested artificial tears three times a day. Return as directed. Sue Lanier, OD I have confirmed and edited as necessary the relevant ophthalmic history, ROS, and the neuro exam findings as obtained by others. I have seen and examined this patient. documented in this encounter [facility] 01-22-2023 History of Presen t illness Narrative Subjective Patient ID: Neo Cole is a 67 y.o. male who presents for rash top of head,eye brow (x1day). HPI Patient with pain for few days started developed rash yesterday. Review of Systems Constitutional: Negative for activity change, appetite change, chills, fatigue and fever. Respiratory: Negative for cough, chest tightness and shortness of breath. Cardiovascular: Negative for chest pain, palpitations and leg swelling. Gastrointestinal: Negative for abdominal pain, constipation, diarrhea, nausea and vomiting. Skin: Positive for rash. Objective BP 140/82 Pulse 80 Ht 1.88 m (6' 2 ) Wt 88.9 kg (196 lb) SpO2 95% BMI 25.16 kg/m Physical Exam Vitals and nursing note reviewed. Constitutional: Appearance: Normal appearance. He is normal weight. Skin: Comments: Erythematous macular papular type rash over the V1 distribution of the left forehead consistent with shingles. No involvement of the distal nose, eye examination reveals intact pupillary reflex, no evidence of conjunctival injection or erythema over the conjunctive, sclera appear to be normal. Neurological: Mental Status: He is alert. Assessment/Plan Problem List Items Addressed This Visit ICD-10-CM Hyperlipemia E78.5 Relevant Medications rosuvastatin (Crestor) 40 mg tablet Hypertension I10 Relevant Medications losartan (Cozaar) 50 mg tablet Other Visit Diagnoses Codes Herpes zoster without complication - Primary B02.9 Valacyclovir x 7 days, prednisone taper for 10 days, watch blood sugars, recommend seeing electronic imager. Relevant Medications valACYclovir (Valtrex) 1 gram tablet predniSONE (Deltasone) 10 mg tablet documented in this encounter [facility] Work Phone: 01-04-2023 Note HNO ID: [id number] Author: Sue Lanier OD Service: ? Author Type: APPRAISAL ANALYST Type: Progress Notes Filed: 01/04/2023 5:44 PM Note Text: ASSESSMENT/PLAN: 1. Type 2 diabetes mellitus without retinopathy (HCC) - ICD9: 250.00, ICD10: E11.9 (primary diagnosis) Examination shows no ocular diabetic complications today. Discussed need for optimal diabetes control to minimize chance of ocular complications. Advise patient to immediately report worsening in status or additional symptoms. Continue yearly dilated eye examinations. 2. Combined form of senile cataract of both eyes - ICD9: 366.19, ICD10: H25.813 Mild to moderate cataract in both eyes. Well tolerated at this time. Discussed possible future affect on daily activities to watch for. Monitor as instructed. 3. Floaters, bilateral - ICD9: 379.24, ICD10: H43.393 Vitreal floaters stable both eyes. Retinas flat and intact with no apparent retinal tear or traction. Discussed symptoms of retinal tear/detachment and if seen patient will return to clinic without delay. 4. Myopia, bilateral - ICD9: 367.1, ICD10: H52.1 5. Regular astigmatism, bilateral - ICD9: 367.21, ICD10: H52.223 6. Presbyopia - ICD9: 367.4, ICD10: H52.4 Continue to wear his glasses as desired. Recommended yearly dilated exams. Sue Lanier, MARIA R I have confirmed and edited as necessary the relevant ophthalmic history, ROS, and the neuro exam findings as obtained by others. I have seen and examined this patient. [facility] 01-04-2023 Instructions Sue Lanier, MARIA R - 01/04/2023 5:42 PM EST ASSESSMENT/PLAN: 1. Type 2 diabetes mellitus without retinopathy (HCC) - ICD9: 250.00, ICD10: E11.9 (primary diagnosis) Examination shows no ocular diabetic complications today. Discussed need for optimal diabetes control to minimize chance of ocular complications. Advise patient to immediately report worsening in status or additional symptoms. Continue yearly dilated eye examinations. 2. Combined form of senile cataract of both eyes - ICD9: 366.19, ICD10: H25.813 Mild to moderate cataract in both eyes. Well tolerated at this time. Discussed possible future affect on daily activities to watch for. Monitor as instructed. 3. Floaters, bilateral - ICD9: 379.24, ICD10: H43.393 Vitreal floaters stable both eyes. Retinas flat and intact with no apparent retinal tear or traction. Discussed symptoms of retinal tear/detachment and if seen patient will return to clinic without delay. 4. Myopia, bilateral - ICD9: 367.1, ICD10: H52.1 5. Regular astigmatism, bilateral - ICD9: 367.21, ICD10: H52.223 6. Presbyopia - ICD9: 367.4, ICD10: H52.4 Continue to wear his glasses as desired. Recommended yearly dilated exams. documented in this encounter [facility] 01-04-2023 History of Presen t illness Narrative ASSESSMENT/PLAN: 1. Type 2 diabetes mellitus without retinopathy (HCC) - ICD9: 250.00, ICD10: E11.9 (primary diagnosis) Examination shows no ocular diabetic complications today. Discussed need for optimal diabetes control to minimize chance of ocular complications. Advise patient to immediately report worsening in status or additional symptoms. Continue yearly dilated eye examinations. 2. Combined form of senile cataract of both eyes - ICD9: 366.19, ICD10: H25.813 Mild to moderate cataract in both eyes. Well tolerated at this time. Discussed possible future affect on daily activities to watch for. Monitor as instructed. 3. Floaters, bilateral - ICD9: 379.24, ICD10: H43.393 Vitreal floaters stable both eyes. Retinas flat and intact with no apparent retinal tear or traction. Discussed symptoms of retinal tear/detachment and if seen patient will return to clinic without delay. 4. Myopia, bilateral - ICD9: 367.1, ICD10: H52.1 5. Regular astigmatism, bilateral - ICD9: 367.21, ICD10: H52.223 6. Presbyopia - ICD9: 367.4, ICD10: H52.4 Continue to wear his glasses as desired. Recommended yearly dilated exams. Sue Lanier, OD I have confirmed and edited as necessary the relevant ophthalmic history, ROS, and the neuro exam findings as obtained by others. I have seen and examined this patient. documented in this encounter [facility] 06-02-2022 Evaluation + Plan note Associated Problem(s): Hyperlipemia Lipid profile on blood testing done at [facility] on 06 May was at goal. [facility] Work Phone: 06-02-2022 Evaluation + Plan note Associated Problem(s): Type 2 diabetes mellitus (CMS/HCC) Is currently established with endocrinology that is following on a regular basis, most recent A1c testing was slightly above 8, ophthalmology up-to-date, no issues with his feet. [facility] Work Phone: 06-02-2022 Evaluation + Plan note Associated Problem(s): Erectile dysfunction due to diseases classified elsewhere Discussion today about pathophysiology of erectile dysfunction, was given a prescription for sildenafil 100 mg to try, contact the office if no help [facility] Work Phone: 06-02-2022 Miscellaneous Notes Associated Problem(s): Hyperlipemia Lipid profile on blood testing done at [facility] on 06 May was at goal. Associated Problem(s): Type 2 diabetes mellitus (CMS/HCC) Is currently established with endocrinology that is following on a regular basis, most recent A1c testing was slightly above 8, ophthalmology up-to-date, no issues with his feet. Associated Problem(s): Erectile dysfunction due to diseases classified elsewhere Discussion today about pathophysiology of erectile dysfunction, was given a prescription for sildenafil 100 mg to try, contact the office if no help Associated Problem(s): Hypertension Blood pressure marginal, not aware of microalbumin testing, creatinine on recent testing at [facility] was normal, will continue with current medications. Patient encouraged to check home blood pressures with a goal to be less than 140/90 documented in this encounter [facility] Work Phone: 06-02-2022 Evaluation + Plan note Associated Problem(s): Hypertension Blood pressure marginal, not aware of microalbumin testing, creatinine on recent testing at [facility] was normal, will continue with current medications. Patient encouraged to check home blood pressures with a goal to be less than 140/90 [facility] Work Phone: 06-02-2022 History of Presen t illness Narrative Subjective Patient ID: Neo Cole is a 66 y.o. male who presents for 6 mo labs. HPI No low blood sugars since last OV, seen opthalmology in the past year, and no numbness or tingling in feet, skin normal. Sees Endocrinology ([facility] in [place]) on a regular basis, last A1c 8.4, adjusting Humalog with meals based on sugars and carbs No headache, chest pain, shortness of breath, dizziness, lightheadedness, or edema Did a lifeline screening, exercise on a regular basis Review of Systems Constitutional: Negative for activity change, appetite change, fatigue and unexpected weight change. HENT: Negative for ear pain, nosebleeds, rhinorrhea, sneezing and trouble swallowing. Respiratory: Negative for cough, shortness of breath and wheezing. Cardiovascular: Negative for chest pain, palpitations and leg swelling. Gastrointestinal: Negative for abdominal distention, abdominal pain, constipation, diarrhea, nausea and vomiting. Genitourinary: Negative for difficulty urinating. Musculoskeletal: Negative for arthralgias. Skin: Negative for rash. Neurological: Negative for dizziness, light-headedness, numbness and headaches. Hematological: Negative for adenopathy. Psychiatric/Behavioral: Negative for behavioral problems. All other systems reviewed and are negative. Objective BP 140/80 Pulse 68 Ht 1.88 m (6' 2 ) Wt 88.6 kg (195 lb 4.8 oz) SpO2 94% BMI 25.08 kg/m Physical Exam Vitals and nursing note reviewed. Constitutional: General: He is not in acute distress. Appearance: Normal appearance. He is not toxic-appearing. HENT: Head: Normocephalic and atraumatic. Right Ear: Tympanic membrane, ear canal and external ear normal. Left Ear: Tympanic membrane, ear canal and external ear normal. Nose: Nose normal. Mouth/Throat: Mouth: Mucous membranes are moist. Pharynx: Oropharynx is clear. Eyes: Extraocular Movements: Extraocular movements intact. Conjunctiva/sclera: Conjunctivae normal. Pupils: Pupils are equal, round, and reactive to light. Cardiovascular: Rate and Rhythm: Normal rate and regular rhythm. Pulmonary: Effort: Pulmonary effort is normal. Breath sounds: Normal breath sounds. Abdominal: General: Abdomen is flat. Bowel sounds are normal. Palpations: Abdomen is soft. Musculoskeletal: Cervical back: Normal range of motion and neck supple. Skin: General: Skin is warm and dry. Capillary Refill: Capillary refill takes less than 2 seconds. Neurological: General: No focal deficit present. Mental Status: He is alert and oriented to person, place, and time. Mental status is at baseline. Psychiatric: Mood and Affect: Mood normal. Behavior: Behavior normal. Assessment/Plan Problem List Items Addressed This Visit Circulatory Hypertension Blood pressure marginal, not aware of microalbumin testing, creatinine on recent testing at [facility] was normal, will continue with current medications. Patient encouraged to check home blood pressures with a goal to be less than 140/90 Relevant Orders Follow Up In Primary Care Genitourinary Erectile dysfunction due to diseases classified elsewhere Discussion today about pathophysiology of erectile dysfunction, was given a prescription for sildenafil 100 mg to try, contact the office if no help Relevant Medications sildenafil (Viagra) 100 mg tablet Other Relevant Orders Follow Up In Primary Care Endocrine/Metabolic Type 2 diabetes mellitus ([facility]/HCC) - Primary Is currently established with endocrinology that is following on a regular basis, most recent A1c testing was slightly above 8, ophthalmology up-to-date, no issues with his feet. Relevant Orders Follow Up In Primary Care Other Hyperlipemia Lipid profile on blood testing done at [facility] on 06 May was at goal. Relevant Orders Follow Up In Primary Care documented in this encounter [facility] Work Phone: 06-02-2022 Instructions Tali Tran MD - 06/02/2022 8:20 AM EDT Try sildenafil as needed documented in this encounter [facility] Work Phone: 12-22-2021 Instructions Sue Lanier OD - 12/22/2021 4:02 PM EST ASSESSMENT/PLAN: 1. Type 2 diabetes mellitus without retinopathy (HCC) - ICD9: 250.00, ICD10: E11.9 (primary diagnosis) Examination shows no ocular diabetic complications today. Discussed need for optimal diabetes control to minimize chance of ocular complications. Advise patient to immediately report worsening in status or additional symptoms. Continue yearly dilated eye examinations. 2. Combined form of senile cataract of both eyes - ICD9: 366.19, ICD10: H25.813 Mild cataract in both eyes. Well tolerated at this time. Discussed possible future affect on daily activities to watch for. Monitor as instructed. 3. Myopia, bilateral - ICD9: 367.1, ICD10: H52.13 4. Regular astigmatism, bilateral - ICD9: 367.21, ICD10: H52.223 5. Presbyopia - ICD9: 367.4, ICD10: H52.4 Continue to wear his glasses with the optional update. Recommended yearly exams. documented in this encounter [facility] 12-22-2021 History of Presen t illness Narrative ASSESSMENT/PLAN: 1. Type 2 diabetes mellitus without retinopathy (HCC) - ICD9: 250.00, ICD10: E11.9 (primary diagnosis) Examination shows no ocular diabetic complications today. Discussed need for optimal diabetes control to minimize chance of ocular complications. Advise patient to immediately report worsening in status or additional symptoms. Continue yearly dilated eye examinations. 2. Combined form of senile cataract of both eyes - ICD9: 366.19, ICD10: H25.813 Mild cataract in both eyes. Well tolerated at this time. Discussed possible future affect on daily activities to watch for. Monitor as instructed. 3. Myopia, bilateral - ICD9: 367.1, ICD10: H52.13 4. Regular astigmatism, bilateral - ICD9: 367.21, ICD10: H52.223 5. Presbyopia - ICD9: 367.4, ICD10: H52.4 Continue to wear his glasses with the optional update. Recommended yearly exams. Sue Lanier, OD I have confirmed and edited as necessary the relevant ophthalmic history, ROS, and the neuro exam findings as obtained by others. I have seen and examined this patient. documented in this encounter [facility] 05-23-2020 History of Presen t illness Narrative No low blood sugars since last OV, seen opthalmology in the past year, and no numbness or tingling in feet, skin normal.No headache, chest pain, shortness of breath, dizziness, lightheadedness, or edemaSeen endocrinology in December and a couple of week ago, has F/U in July [facility] Work Phone: 11-23-2019 History of Presen t illness Narrative No low blood sugars since last OV, seen opthalmology in the past year, and no numbness or tingling in feet, skin normal.No headache, chest pain, shortness of breath, dizziness, lightheadedness, or edemastarted using cont. glucose meter for the past 10 days, highest at dinner timeLBS 1-2 in the past 2 weeks [facility] Work Phone: [facility] Diagnosis Type 2 diabetes mellitus without complication, without long-term current use of insulin ([facility])- Primary Mixed hyperlipidemia Primary hypertension Unspecified essential hypertension Erectile dysfunction due to diseases classified elsewhere documented in this encounter [facility] Work Phone: Evaluation note* Diagnosis Type 2 diabetes mellitus without retinopathy (HCC)- Primary Type II or unspecified type diabetes mellitus without mention of complication, not stated as uncontrolled Combined form of senile cataract of both eyes Floaters, bilateral Myopia, bilateral Myopia Regular astigmatism, bilateral Presbyopia 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 Diagnosis Postherpetic neuralgia- Primary Herpes zoster with other nervous system complications documented in this encounter [facility] Work Phone: History of Present illness Narrative* Past Medical, Surgical and Family History: reviewed and updated in chart. * Medications and Supplements: Review of all medications by a prescribing practitioner or clinical pharmacist (such as prescriptions, OTC's, herbal therapies and supplements) documented in the medical record. * No, the patient is not using opioids. * Tobacco use: Non-User * Alcohol use: Non-User * Illicit drug use: Non-User * Current diet: well balanced diet. * Exercise Frequency: regular * Depression Screening: * Patient Health Questionnaire - 2 (PHQ-2):. * During the past 2 weeks, the patient has not felt down, depressed or hopeless. * During the past 2 weeks, the patient has not felt little interest or pleasure in doing things. * Hearing Impairment: none. * Visual Acuity: IO Vision Screening in results section * Cognitive Impairment: No cognitive impairment observed. * Activities of Daily Living: He does not have issues with activities of daily living (e.g. dressing,bathing, walking, shopping, housekeeping, etc.). * Falls Risk Screening: NEO has not fallen in the last 6 months. * Home safety risk factors: None. * Advance directives:. Advance Care Planning discussed and documented in the medical record, patient did not wish or was not able to name a surrogate decision maker or provide an advance care plan. Patient has no living will. Patient has healthcare POA. * Patient's End of Life Decisions: End of life decisions were reviewed with the patient. I agree to follow the patient's decisions. * No low blood sugars since last OV, seen opthalmology in the past year, and no numbness or tingling in feet, skin normal. * No headache, chest pain, shortness of breath, dizziness, lightheadedness, or edema * retired in July, following with endocrinology in [place], no LBS, below 200, got Dexcom device [facility] Work Phone: Instructions* Name Dates Details Instructions not documented [facility] [place] Work Phone: Reason for referral (narrative)* Consultation (Routine) - Authorized Specialty Diagnoses / Procedures Referred By Contac t Referred To Contact Primary Care Diagnoses Type 2 diabetes mellitus without complication, without long-term current use of insulin ([facility]) Mixed hyperlipidemia Primary hypertension Erectile dysfunction due to diseases classified elsewhere Procedures Follow Up In Primary Care Tali Tran MD [address] [place] [address] Referral ID Status Reason Start Date Expiration Date V isits Requested Visits Authorized [id number] Authorized 06/02/2022 11/29/2022 1 1 [facility] Work Phone: Summary Purpose Family History Mother Name Dates Details Family history of diabetes m ellitus(V18.0, Z83.3) Status:Active Father Name Dates Details Family history of diabetes m ellitus(V18.0, Z83.3) Status:Active Family history of hypertensi on(V17.49, Z82.49) Status:Active Unknown Family Member Name Dates Details Family history of diabetes m ellitus: Mother, Father(V18.0, Z83.3) Status:Active Family history of hypertensi on: Father(V17.49, Z82.49) Status:Active Unknown Family Member Name Dates Details Family history of diabetes m ellitus: Mother, Father(V18.0, Z83.3) Status:Active Family history of hypertensi on: Father(V17.49, Z82.49) Status:Active Unknown Family Member Name Dates Details Family history of diabetes m ellitus: Mother, Father(V18.0, Z83.3) Status:Active Family history of hypertensi on: Father(V17.49, Z82.49) Status:Active Unknown Family Member Name Dates Details Family history of diabetes m ellitus: Mother, Father(V18.0, Z83.3) Status:Active Family history of hypertensi on: Father(V17.49, Z82.49) Status:Active Unknown Family Member Name Dates Details Family history of diabetes m ellitus: Mother, Father(V18.0, Z83.3) Status:Active Family history of hypertensi on: Father(V17.49, Z82.49) Status:Active Unknown Family Member Name Dates Details Family history of diabetes m ellitus: Mother, Father(V18.0, Z83.3) Status:Active Family history of hypertensi on: Father(V17.49, Z82.49) Status:Active Unknown Family Member Name Dates Details Family history of diabetes m ellitus: Mother, Father(V18.0, Z83.3) Status:Active Family history of hypertensi on: Father(V17.49, Z82.49) Status:Active Advance Directives No Advanced Directives Records FoundNo Advanced Directives Records FoundNo Advanced Directives Records FoundNo Advanced Directives Records FoundNo Advanced Directives Records Found Chief Complaint 6MO HL- HTN- DMII [facility]K REV LABS([facility])6 MO F/U REV LABS6 MO F/U LABS Medications Administered Section Inactive Administered Medications - up to 3 most recent administrations Medication Order MAR Action Action Date Dose Rate Site PHENYLephrine 2.5 % 1 Drop (AK-DILATE, TIM-SYNEPHRINE) 1 Drop, BOTH EYES, ONCE, 1 dose, On Wed12/22/21 at 1600, FOR OPHTHALMIC USE ONLY PROTECT FROM LIGHT Given 12/22/2021 4:00 PM EST 1 Drop proparacaine 0.5 % 1 Drop (ALCAINE) 1 Drop, BOTH EYES, ONCE, 1 dose, On Wed12/22/21 at 1600, FOR THE EYE Given 12/22/2021 4:00 PM EST 1 Drop tropicamide 1 % 1 Drop (MYDRIACYL) 1 Drop, BOTH EYES, ONCE, 1 dose, On Wed12/22/21 at 1600, FOR THE EYE Given 12/22/2021 4:00 PM EST 1 Drop Inactive Administered Medications - up to 3 most recent administrations Medication Order MAR Action Action Date Dose Rate Site PHENYLephrine 2.5 % 1 Drop (AK-DILATE, TIM-SYNEPHRINE) 1 Drop, BOTH EYES, ONCE, 1 dose, On Wed01/04/23 at 1730, FOR OPHTHALMIC USE ONLY PROTECT FROM LIGHT Given 01/04/2023 5:30 PM EST 1 Drop tropicamide 1 % 1 Drop (MYDRIACYL) 1 Drop, BOTH EYES, ONCE, 1 dose, On Wed01/04/23 at 1730, FOR THE EYE Given 01/04/2023 5:30 PM EST 1 Drop Active Administered Medications - up to 3 most recent administrations Medication Order MAR Action Action Date Dose Rate Site PHENYLephrine 2.5 % 1 Drop (AK-DILATE, TIM-SYNEPHRINE) 1 Drop, BOTH EYES, DIRECTED, Starting on 01/29/23 at 1630, Until 01/30/23 at 0429, Administer for dilation PROTECT FROM LIGHT Given 01/29/2023 4:30 PM EST 1 Drop proparacaine 0.5 % 1 Drop (ALCAINE) 1 Drop, BOTH EYES, DIRECTED, Starting on Wed01/29/23 at 1630, Until 01/30/23 at 0429, Administer for pneumo tonometry, tonopen tonometry, or pachymetry. In the event of a proparacaine shortage, administer tetracaine 0.5% ophthalmic drops 1 drop in the left eye as directed for pneumo tonometry, tonopen tonometry, or pachymetry Given 01/29/2023 4:30 PM EST 1 Drop tropicamide 1 % 1 Drop (MYDRIACYL) 1 Drop, BOTH EYES, DIRECTED, Starting on Wed01/29/23 at 1630, Until 01/30/23 at 0429, Administer for dilation Given 01/29/2023 4:30 PM EST 1 Drop Reason for Referral Specialty Diagnoses / Procedures Referred By Veronika hawkins Referred To Contact Diagnoses Postherpetic neuralgia Kenton Levin, DO [address] [place] [address] Referral ID Status Reason Start Date Expiration Date V isits Requested Visits Authorized [id number] Pending Review 1 1 Additional Source Comments (unrecognized sect ion and content) No Status Records FoundNo Status Records FoundNo Status Records FoundNo Status Records FoundNo Status Records Found INFORMATION SOURCE (unrecogn ized section and content) DATE CREATED AUTHOR AUTHOR'S ORGANIZ ATION 11/25/2021 [employer] DATE CREATED AUTHOR AUTHOR'S ORGANIZ ATION 11/25/2021 [facility] DATE CREATED AUTHOR AUTHOR'S ORGANIZ ATION 01/25/2023 [facility] DATE CREATED AUTHOR AUTHOR'S ORGANIZ ATION 01/31/[address] [facility] Source Comments (unrecognize d section and content) In the event this informatio n is protected by the Federal Confidentiality of Alcohol and Drug Abuse Patient Records regulations: The Federal rules restrict any use of the information to criminally investigate or prosecute any alcohol or drug abuse patient.[facility] the event this information is protected by the Federal Confidentiality of Alcohol and Drug Abuse Patient Records regulations: The Federal rules restrict any use of the information to criminally investigate or prosecute any alcohol or drug abuse patient.[facility] the event this information is protected by the Federal Confidentiality of Alcohol and Drug Abuse Patient Records regulations: The Federal rules restrict any use of the information to criminally investigate or prosecute any alcohol or drug abuse patient.[facility] the event this information is protected by the Federal Confidentiality of Alcohol and Drug Abuse Patient Records regulations: The Federal rules restrict any use of the information to criminally investigate or prosecute any alcohol or drug abuse patient.[facility] the event this information is protected by the Federal Confidentiality of Alcohol and Drug Abuse Patient Records regulations: The Federal rules restrict any use of the information to criminally investigate or prosecute any alcohol or drug abuse patient.[facility] Reason for Visit (unrecogniz ed section and content) Reason Comments 6 mo labs Reason Comments rash top of head,eye brow x1day Reason Comments Patient Update Reason Comments Shingles Swollen left eyelid Reason Comments Herpes Zoster Follow Up Diabetes Dry Eye(s) Both Eyes Reason Comments Facial Pain Patient states he wa s diagnosed with shingles 2 weeks ago on the left side of his face, states lesions have improved but started to have pain on Wednesday and states pain is severe. He is taking gabapentin and was given Tramadol on Wednesday without improvement Care Teams (unrecognized sec tion and content) Public Administration Teacher Relationship Specialty Start Date End Date Tali Tran MD [address] [place] [address] PCP - General 07/21/19 Tali Tran MD [address] [place] [address] PCP - Ismael CANELA PCP 02/15/21 Public Administration Teacher Relationship Specialty Start Date End Date Tali Tran MD PCP - General Family Medicine 10/25/20 Public Administration Teacher Relationship Specialty Start Date End Date Tali Tran MD PCP - General 07/21/19 Tali Tran MD [address] [place] [address] PCP - Ismael CANELA PCP 02/15/21 Public Administration Teacher Relationship Specialty Start Date End Date Tali Tran MD PCP - General Family Medicine 10/25/20 Public Administration Teacher Relationship Specialty Start Date End Date Tali Tran MD PCP - General Family Medicine 10/25/20 Public Administration Teacher Relationship Specialty Start Date End Date Tali Tran MD PCP - General Family Medicine 10/25/20 Sue Lanier OD [address] [place] [address] Optometry 01/29/23 Public Administration Teacher Relationship Specialty Start Date End Date Tali Tran MD [address] [place] [address] PCP - [place] [facility] PCP 02/15/21 Tali Tran MD [address] [place] [address] PCP - General Family Medicine 02/07/23 Scheduled Active and Recently Administ ered Medications (unrecognized section and content) FOR RECORDS PERTAINING TO PATIENTS WHO ARE OR HAVE BEEN ENROLLED IN A CHEMICAL DEPENDENCY/SUBSTANCEABUSE PROGRAM, SOME INFORMATION MAY BE OMITTED. This clinical summary was aggregated from multiple sources. Caution should be exercised in using it in the provision of clinical care. This summary normalizes information from multiple sources, and as a consequence, information in this document may materially change the coding, format and clinical context of patient data. In addition, data may be omitted in some cases. CLINICAL DECISIONS SHOULD BE BASED ON THE PRIMARY CLINICAL RECORDS. [employer] provides no warranty or guarantee of the accuracy or completeness of information in this document.
[2023-02-12] MEDS: Ondansetron ODT 4 MG Tablet PO (01:16)
[2023-02-12] MEDS: HYDROmorphone 1 MG/ML Syringe IM (01:16)
== END 2023-02-12 01:25 | disposition home or self-care (01) ==
LOC: ED 02-12 01:08
PROVIDERS: Emergency Provider Emergency Medicine; PCP Family Medicine; Referring Provider Emergency Medicine; Visit Provider Emergency Medicine
DX: E11.40 Type 2 diabetes mellitus with diabetic neuropathy, unspecified (principal); B02.9 Zoster without complications; I10 Essential (primary) hypertension; E78.00 Pure hypercholesterolemia, unspecified
CPT/HCPCS: 96372; 99283

== ENCOUNTER 2023-02-13 07:04 | Emergency (ER) | payer BC, SELFPAY ==
[2023-02-13 07:04] VITALS: BP 182/94; PULSE 87; RESP 22; TEMP 36.3; O2SAT 97; BMI 23.7
[2023-02-13] MEDS: HYDROmorphone 1 MG/ML Syringe IM (07:39)
--- NOTE | 2023-02-13 07:39 | EX.ED.DYSGE1 ---
HPI History of Present Illness Chief Complaint: Other, Pain/Inj Informant: patient and spouse/S.O. Narrative Narrative: Presents to ED for evaluation continued shingles pain left scalp. Diagnosed shingles 22 days ago. Finish course of antivirals and steroids. On , 12 days ago pain was intensifying. He is ramped up on gabapentin currently at 300 mg 3 times daily for the past 5 days written by his PCP. Tramadol and Percocet does not help in the past. He has done topical lidocaine with no relief. He has done lidocaine patches no relief. Currently on a second round of antivirals and steroids day 5. He is a diabetic. He denies any side effects gabapentin of nausea vomiting or any somnolence. He was here 2 days ago, had a pain shot of Dilaudid for which pain helped for 2 hours. He has a pain management appointment in 2 days. He denies history of gastric ulcers or kidney injuries. Has used intermittent ibuprofen. He does not take this scheduled. [facility] Medical History Bone fracture Diabetes High blood pressure High cholesterol Seasonal allergies Home Medications Farxiga 10 mg tablet (dapagliflozin propanediol) 10 mg PO DAILY #30 tabs 12/26/20 [Rx Last Taken Unknown] flash glucose scanning reader #1 ea 12/26/20 [History Last Taken Unknown] flash glucose sensor #1 ea 12/26/20 [History Last Taken Unknown] OneTouch Ultra Test (blood sugar diagnostic) #100 ea 04/30/21 [Rx Last Taken Unknown] ezetimibe 10 mg tablet (Zetia) 10 mg PO DAILY #90 tabs 05/20/21 [Rx Last Taken Unknown] Dexcom G6 [employer] Engineer (blood-glucose meter,continuous) #1 ea 09/15/21 [Rx Last Taken Unknown] Dexcom G6 Sensor (blood-glucose sensor) #9 ea 09/28/22 [Rx Last Taken Unknown] Dexcom G6 Transmitter (blood-glucose transmitter) #1 ea 09/28/22 [Rx Last Taken Unknown] glimepiride 2 mg tablet 2 mg PO DAILY 12/28/22 [History Last Taken Unknown] insulin detemir U-100 100 unit/mL (3 mL) subcutaneous pen 40 unit subcut DAILY 12/28/22 [History Last Taken Unknown] insulin lispro 100 unit/mL subcutaneous pen 10 unit subcut QACDINNER 12/28/22 [History Last Taken Unknown] losartan 50 mg tablet 50 mg PO DAILY 12/28/22 [History Last Taken Unknown] metformin 1,000 mg tablet 1,000 mg PO BID 12/28/22 [History Last Taken Unknown] rosuvastatin 40 mg tablet 40 mg PO DAILY 12/28/22 [History Last Taken Unknown] diclofenac sodium 1 % topical gel (Voltaren Arthritis Pain) 2 g topical TID PRN PRN pain #100 grams 02/13/23 [Rx Last Taken Unknown] ibuprofen 600 mg tablet 600 mg PO Q6H PRN PRN pain #20 TABLETS 02/13/23 [Rx Last Taken Unknown] Allergy/AdvReac Type Severity Reaction Status Date / Time No Known Allergies Allergy Verified 02/11/23 23:24 Family History Other CVA (cerebral vascular accident) Cervical cancer Diabetes Hypertension Social History Smoking Status: Never smoker alcohol intake: current alcohol intake frequency: holidays/special occasions only substance use type: does not use what type of physical activity do you participate in: walking frequency: daily ROS ROS ED Constitutional Constitutional ED: Denies chills, fever(s) or sweats Eyes Eyes: Denies change in vision ENT ENT ED: Denies dysphagia or sore throat Cardiovascular Cardiovascular: Denies chest pain, leg edema, palpitations or racing heartbeat Respiratory/Chest Respiratory/Chest: Denies cough, dyspnea or dyspnea on exertion Gastrointestinal Gastrointestinal: Denies abdominal pain, diarrhea, nausea or vomiting Genitourinary Genitourinary ED: Denies dysuria, hematuria or urinary frequency Musculoskeletal Musculoskeletal: Denies back pain, extremity pain or neck pain Integumentary Denies rash or wounds Neurologic Neurologic: Reports other Details: Neuropathic pain ; Denies headache(s), paresthesias or weakness EXAM Physical Exam Const Vital Signs: 02/13/23 07:04 Temperature 97.3 F L Temperature Source Temporal Pulse Rate 87 Respiratory Rate 22 H Blood Pressure 182/94 H Blood Pressure Mean 123 Pulse Ox 97 Oxygen Delivery Method Room Air Positive well nourished and well developed General Appearance ED: well developed and NAD HEENT Reports moist mucous membranes HEENT Narrative: Tenderness to the skin scalp frontal left side. No active lesions. normocephalic Eyes PERRL, EOMs intact bilaterally and conjunctivae normal General Eye ED: Yes normal appearance of both eyes Neck no lymphadenopathy and supple General: Negative for tenderness Chest Wall Chest: Negative for tenderness Resp normal respiratory effort and normal air movement Effort and Inspection: symmetric chest movement; Negative for respiratory distress Cardio regular rate, regular rhythm and no murmurs Peripheral Pulses: pulses 2+ throughout GI normal to inspection, nondistended, normoactive bowel sounds and non-tender Palpation: Negative for guarding or rebound tenderness present Back/Spine no CVA tenderness and no thoracic nor lumbar tenderness Extremity normal to inspection General Extremety ED: Negative for edema or tenderness General Extremity: Negative for edema Neuro oriented x3 and no sensory deficits noted Sensorium / Orientation: awake and alert Skin no rashes or lesions noted and no wounds MDM MDM MDM Narrative Medical decision making narrative: Interventions / MDM: Differential diagnosis: Postherpetic neuralgia Diagnosis considered but do not suspect: N/A My EKG interpretation: N/A Imaging independently reviewed and interpreted by myself: N/A External documents reviewed: Previous ED visits noted treatment options and discussions. Test considered but not ordered:N/A ED course: Vital stable nontoxic. Persistent post herpetic neuralgia pain. States oral pain medicines has not helped from opiates. They did not want this. Discussed options, IM Dilaudid held for 2 hours for which she agrees to help dulls pain. Given IM injection of Toradol. Will prescribe topical Voltaren and ibuprofen. Discussed ramping his gabapentin up to 600 mg to try to help with the pain. Meds to bed with NSAIDs and Voltaren topical. They declined opiates as they did not help. They will keep their appointment on Wednesday with pain management. All questions were answered. Re-evaluation: stable Disposition discussed with patient/family/significant other: Patient and significant other Case discussed with consulting clinician: N/A This note was generated with [employer] dictation software. It may contain incorrect words, spelling, and punctuation that were not noted in checking the note before signing. Discharge Plan Triage Chief Complaint: Other, Pain/Inj ED Provider: Carlos Eduardo Heart Dx/Rx/DC Orders Clinical Impression: Neuralgia, postherpetic, History of diabetes mellitus Instructions: ED Shingles (Herpes Zoster) Prescriptions: New diclofenac sodium [Voltaren Arthritis Pain] 1 % gel 2 g topical TID PRN PRN (Reason: pain) Qty: 100 0RF ibuprofen 600 mg tablet 600 mg PO Q6H PRN PRN (Reason: pain) Qty: 20 0RF No Action (DME) FreeStyle [place]cos 14 Day Sensor Kit See Rx Instructions .ROUTE .MEDSUPPLY Qty: 1 Rx Instructions: As directed (DME) FreeStyle Marcos 14 Day [place] Misc See Rx Instructions .ROUTE .MEDSUPPLY Qty: 1 Rx Instructions: As directed Farxiga 10 mg tablet 10 mg PO DAILY Qty: 30 3RF metformin 1,000 mg tablet 1,000 mg PO BID losartan 50 mg tablet 50 mg PO DAILY rosuvastatin 40 mg tablet 40 mg PO DAILY insulin detemir U-100 100 unit/mL (3 mL) insulin pen 40 unit subcut DAILY insulin lispro 100 unit/mL insulin pen 10 unit subcut QACDINNER (DME) Dexcom G6 [employer] Engineer Misc See Rx Instructions .Route Qty: 1 0RF Rx Instructions: As directed glimepiride 2 mg tablet 2 mg PO DAILY (DME) OneTouch Ultra Test Strip See Rx Instructions .ROUTE .MEDSUPPLY Qty: 100 3RF Rx Instructions: As directed ezetimibe [Zetia] 10 mg tablet 10 mg PO DAILY Qty: 90 1RF (DME) Dexcom G6 Sensor Device See Rx Instructions .Route Qty: 9 1RF Rx Instructions: 1 sensor q 10 days (DME) Dexcom G6 Transmitter Device See Rx Instructions .Route Qty: 1 1RF Rx Instructions: 1 transmitter q 90 days Primary Care Provider: Geremias Kay Referrals: Geremias Kay MD [Primary Care Provider] - Activity Restrictions/Additional Instructions: Start to increase her gabapentin up to 600 mg 3 times a day, start 600 mg in the morning and then ramp up over the next few days monitoring for side effects. Use ibuprofen and topical Voltaren as prescribed. Keep your follow-up with your pain doctors on Wednesday for further management options. Disposition Disposition: Home, Self Care Discharge Date/Time: 02/13/23 08:06
[2023-02-13] MEDS: Ketorolac 30 MG/ML Syringe IM (07:40)
--- OUTSIDE RECORDS SUMMARY | 2023-02-13 07:46 | XMS RPT_ITS | CCD ---
Author Name Unknown Address [address] [place] [address] Organization [facility] Care Team Providers Care Research Animal Attendant Name Role Phone Tali Tran MD Unavailable [...] Primary Care Unavailable Sue Lanier OD Unavailable [phone] TALI TRAN Primary Care Unavaila ble PEDRO LUIS FITZGERALD Attending Unavailable SUE LANIER Attending Unavailabl e TALI TRAN Referring Unavaila ble TRANTALI Soriano Primary Care Unavaila ble SUE LANIER Attending Unavailabl e TALI TRAN Primary Care UnavailTali Mcpherson MD Primary Care Provider [phone] Medications Current Medications Medication Drug Class(es) Dates [...] : 07-Aug-2019 Active FreeStyle Marcos 14 Day [place]wood Device (1 source) Start: 05-24-2020 FreeStyle Marcos 14 Day [place] Device USE DIRECTED Quantity: 1 Refills: 0 [...] 83 mm[Hg] Kenton Levin DO Work Phone: [facility] 02-07-2023 16:39-0500 Heart rate 79 /min Kenton Levin DO Work Phone: [facility] 02-07-2023 16:39-0500 Respiratory rate 18 /min Kenton Levin DO Work Phone: [facility] 02-07-2023 16:39-0500 SaO2% (BldA) [Mass fraction] 97 % Kenton Levin DO Work Phone: [facility] 02-07-2023 16:39-0500 Systolic blood pressure 142 mm[Hg] Kenton Levin DO Work Phone: [facility] 02-07-2023 15:25-0500 Body height 188 cm Kenton Levin DO Work Phone: [facility] 02-07-2023 15:25-0500 Body mass index (BMI) [Ratio] 24.65 kg/m2 Kenton Levin DO Work Phone: [facility] 02-07-2023 15:25-0500 Body temperature 97.5 [degF] Kenton Levin DO Work Phone: [facility] 02-07-2023 15:25-0500 Body weight 87.09 kg Kenton Levin DO Work Phone: [facility] 01-22-2023 11:10-0500 Body height 188 cm Tali Tran MD Work Phone: [facility] 01-22-2023 11:10-0500 Body mass index (BMI) [Ratio] 25.16 kg/m2 Tali Tran MD Work Phone: [facility] 01-22-2023 11:10-0500 Body weight 88.91 kg Tali Tran MD Work Phone: [facility] 01-22-2023 11:10-0500 Diastolic blood pressure 82 mm[Hg] Tali Tran MD Work Phone: [facility] 01-22-2023 11:10-0500 Heart rate 80 /min Tali Tran MD Work Phone: [facility] 01-22-2023 11:10-0500 SaO2% (BldA) [Mass fraction] 95 % Tali Tran MD Work Phone: [facility] 01-22-2023 11:10-0500 Systolic blood pressure 140 mm[Hg] Tali Tran MD Work Phone: [facility] 06-02-2022 08:19-0400 Body height 188 cm Tali Tran MD Work Phone: [facility] 06-02-2022 08:19-0400 Body mass index (BMI) [Ratio] 25.08 kg/m2 Tali Tran MD Work Phone: [facility] 06-02-2022 08:19-0400 Body weight 88.59 kg Tali Tran MD Work Phone: [facility] 06-02-2022 08:19-0400 Diastolic blood pressure 80 mm[Hg] Tali Tran MD Work Phone: [facility] 06-02-2022 08:19-0400 Heart rate 68 /min Tali Tran MD Work Phone: [facility] 06-02-2022 08:19-0400 SaO2% (BldA) [Mass fraction] 94 % Tali Tran MD Work Phone: [facility] 06-02-2022 08:19-0400 Systolic blood pressure 140 mm[Hg] Tali Tran MD Work Phone: [facility] 11-25-2021 08:25-0400 Body height 187.96 cm Tali Tran Work Phone: [place] [place] Phone: 11-25-2021 08:25-0400 Body mass index (BMI) [Ratio] 24.98 kg/m2 Tali Tran Work Phone: -[facility] Work Phone: 11-25-2021 08:25-0400 Body surface area Derived from formula 2.15 m2 Tali Tran Work Phone: [facility] Work Phone: 11-25-2021 08:25-0400 Body weight 88.25 kg Tali Tran Work Phone: [facility] Work Phone: 11-25-2021 08:25-0400 Diastolic blood pressure 90 mm[Hg] Tali Tran Work Phone: [facility] Work Phone: 11-25-2021 08:25-0400 Heart rate 67 /min Tali Tran Work Phone: [facility] Work Phone: 11-25-2021 08:25-0400 SaO2% (BldA) [Mass fraction] 95 % Tali Tran Work Phone: -[facility] [employer] [facility] Work Phone: 11-25-2021 08:25-0400 Systolic blood pressure 130 mm[Hg] Tali Tran Work Phone: [facility] [employer] [facility] Work Phone: 05-23-2021 08:21-0400 Body height 187.96 cm Tali Tran Work Phone: [facility] Work Phone: 05-23-2021 08:21-0400 Body mass index (BMI) [Ratio] 24.92 kg/m2 Tali Tran Work Phone: [facility] Work Phone: 05-23-2021 08:21-0400 Body surface area Derived from formula 2.15 m2 Tali Tran Work Phone: [facility] Work Phone: 05-23-2021 08:21-0400 Body weight 88.06 kg Tali Tran Work Phone: [facility] Work Phone: 05-23-2021 08:21-0400 Diastolic blood pressure 72 mm[Hg] Tali Tran Work Phone: [facility] Work Phone: 05-23-2021 08:21-0400 Heart rate 64 /min Tali Tran Work Phone: [facility] Work Phone: 05-23-2021 08:21-0400 SaO2% (BldA) [Mass fraction] 96 % Tali Tran Work Phone: [facility] Work Phone: 05-23-2021 08:21-0400 Systolic blood pressure 140 mm[Hg] Tali Tran Work Phone: [facility] Work Phone: 11-22-2020 08:10-0400 Body height 187.96 cm Tali Tran Work Phone: [facility] Work Phone: 11-22-2020 08:10-0400 Body mass index (BMI) [Ratio] 24.27 kg/m2 Tali Tran Work Phone: [facility] Work Phone: 11-22-2020 08:10-0400 Body surface area Derived from formula 2.12 m2 Tali Tran Work Phone: [facility] Work Phone: 11-22-2020 08:10-0400 Body temperature 97.1 [degF] Tali Tran Work Phone: [employer] [facility] Work Phone: 11-22-2020 08:10-0400 Body weight 85.76 kg Tali Tran Work Phone: [employer] Work Phone: 11-22-2020 08:10-0400 Diastolic blood pressure 72 mm[Hg] Tali Tran Work Phone: [employer] Work Phone: 11-22-2020 08:10-0400 Heart rate 66 /min Tali Tran Work Phone: [employer] Work Phone: 11-22-2020 08:10-0400 SaO2% (BldA) [Mass fraction] 96 % Tali Tran Work Phone: [employer] Work Phone: 11-22-2020 08:10-0400 Systolic blood pressure 140 mm[Hg] Tali Tran Work Phone: [employer] Work Phone: 05-24-2020 10:25-0400 Body height 187.96 cm Tali Tran MD [facility] [employer] Work Phone: 05-24-2020 10:25-0400 Body mass index (BMI) [Ratio] 24.78 kg/m2 Tali Tran MD [facility] [employer] Work Phone: 05-24-2020 10:25-0400 Body surface area Derived from formula 2.14 m2 Tali Tran MD [facility] [employer] Work Phone: 05-24-2020 10:25-0400 Body temperature 97.5 [degF] Tali Tran MD [facility] [employer] Work Phone: 05-24-2020 10:25-0400 Body weight 87.54 kg Tali Tran MD [facility] [employer] Work Phone: 05-24-2020 10:25-0400 Diastolic blood pressure 74 mm[Hg] Tali Tran MD [facility] [employer] Work Phone: 05-24-2020 10:25-0400 Heart rate 70 /min Tali Tran MD [facility] [employer] Work Phone: 05-24-2020 10:25-0400 SaO2% (BldA) [Mass fraction] 97 % Tali Tran MD [facility] [employer] Work Phone: 05-24-2020 10:25-040 Systolic blood pressure 140 mm[Hg] Tali Tran MD [facility] [employer] Work Phone: Encounters Encounter Date Encounter Type Care Provider Facility Start: 02-07-2023 End: 02-07-2023 Emergency department patient visit Kenton G Ollie DIOP Work Phone: [facility] Procedures Date Procedure Procedure Detail Performing Clinician Start: 01-29-2023 Computerized ophthal alejandrina imaging optic nerve Pedro Luis Fitzgerald MD Work Phone: Start: 11-26-2022 Lipid 1996 panel - S landry or Plasma Tlai Tran MD Work Phone: Colonoscopy Tali soriano MD Plan of Treatment Date Care Activity Detail Author Start: 11-27-2027 Prostate Cancer Screening Discussion Prostate Cancer Screening Discussion [facility] Start: 11-27-2027 Prostate specific antigen measurement Prostate Cancer Screening Discussion [facility] Start: 01-30-2024 Glaucoma screening Dilated Retinal Exam [facility] Start: 01-05-2024 Glaucoma screening Diabetes: Retinopathy Screening [facility] Start: 01-05-2024 Hepatitis C antibody, confirmatory test Dilated Retinal Exam [facility] Start: 11-27-2023 Hepatitis B surface antibody level LDL Cholesterol [facility] Start: 11-27-2023 Lipid panel Lipid Panel [facility] Start: 11-27-2023 Urine screening for protein Diabetes: Urine Protein Screening [facility] Start: 06-09-2023 End: 06-09-2023 Patient encounter procedure 06/09/2023 8:00 AM EDT Office Visit [facility] [address] [place] [id number] Tali Tran MD [address] [place] [address] [facility] Start: 02-26-2023 Hemoglobin A1c measurement Diabetes: Hemoglobin A1C [facility] Start: 12-22-2022 Hepatitis C antibody, confirmatory test DILATED RETINAL EXAM [facility] Start: 11-01-2022 Screening for malignant neoplasm of colon [facility] Start: 10-16-2022 Covid-19 Vaccine () Covid-19 Vaccine () [facility] Start: 10-16-2022 Influenza vaccination [facility] Start: 06-02-2022 EPV, Provider: Tali Tran, Status: Pen, Time: 8:20 AM EPV, Provider: Tali Tran, Status: Pen, Time: 8:20 AM [facility] [place] Phone: Start: 02-15-2022 Advance Directive Discussion Advance Directive Discussion [facility] Start: 02-15-2022 Depression Assessment Depression Assessment [facility] Start: 11-25-2021 EPV, Provider: Tali Tran, Status: Pen, Time: 8:20 AM EPV, Provider: Tali Tran, Status: Pen, Time: 8:20 AM [facility] Work Phone: Start: 10-16-2021 Influenza vaccination INFLUENZA (#1) [facility] Start: 2021 ADVANCE DIRECTIVE DISCUSSION ADVANCE DIRECTIVE DISCUSSION [facility] Start: 2021 PNEUMOCOCCAL: 65+ (1 - PCV) PNEUMOCOCCAL: 65+ (1 - PCV) [facility] Start: 05-23-2021 EPV, Provider: Tali Tran, Status: Pen, Time: 8:20 AM EPV, Provider: Tali Tran, Status: Pen, Time: 8:20 AM [facility] Work Phone: Start: 02-28-2021 COVID-19 VACCINE (4 - Booster for Moderna series) COVID-19 VACCINE (4 - Booster for Moderna series) [facility] Start: 02-28-2021 COVID-19 Vaccine (4 - Moderna series) COVID-19 Vaccine (4 - Moderna series) [facility] Start: 02-15-2021 DEPRESSION ASSESSMENT DEPRESSION ASSESSMENT [facility] Start: 11-22-2020 EPV, Provider: Tali Tran, Status: Pen, Time: 8:20 AM EPV, Provider: Tali Tran, Status: Pen, Time: 8:20 AM [facility] Work Phone: Start: 05-24-2020 Albumin, Urine Spot Albumin, Urine Spot [facility] Work Phone: Start: 05-24-2020 Assay of thyroid stimulating hormone tsh TSH - Thyroid Stimulating Hormone, Serum [facility] Work Phone: Start: 05-24-2020 Comprehensive metabolic 2000 panel - Serum or Plasma Comprehensive Metabolic Panel [facility] Work Phone: Start: 05-24-2020 Hemoglobin glycosylated a1c Hemoglobin A1C [facility] Work Phone: Start: 05-24-[address] Lipid Panel [facility] [employer] Phone: Start: 05-24-2020 PSA screening Prostate Spec.Ag, Screen [facility] [employer] Work Phone: Start: 2016 Hepatitis B Vaccine (1 of 3 - Risk 3-dose series) Hepatitis B Vaccine (1 of 3 - Risk 3-dose series) [facility] Start: 2016 RSV Vaccine (1 - 1-dose 60+ series) RSV Vaccine (1 - 1-dose 60+ series) [facility] Start: 09-06-2011 PROSTATE CANCER SCREENING DISCUSSION PROSTATE CANCER SCREENING DISCUSSION [facility] Start: 2006 SHINGRIX VACCINE (1 of 2) SHINGRIX VACCINE (1 of 2) [facility] Start: 2006 Zoster Vaccines (1 of 2) Zoster Vaccines (1 of 2) [facility] Start: 2001 COLOGUARD (FIT-DNA) COLOGUARD (FIT-DNA) [facility] Start: 2001 Colonoscopy COLONOSCOPY [facility] Start: 2001 COLORECTAL CANCER SCREENING COLORECTAL CANCER SCREENING [facility] Start: [address] COLONOGRAPHY [facility] Start: 2001 FECAL OCCULT BLOOD FECAL OCCULT BLOOD [facility] Start: 2001 Screening for malignant neoplasm of colon [facility] Start: 2001 SIGMOIDOSCOPY SIGMOIDOSCOPY [facility] Start: 1978 DTaP/Tdap/Td Vaccines (1 - Tdap) DTaP/Tdap/Td Vaccines (1 - Tdap) [facility] Start: 09-06-1975 Urine microalbumin profile [facility] Start: 09-06-1975 Urine screening for protein Diabetes: Urine Protein Screening [facility] Start: 1974 Annual PCP Team Chronic Disease Visit Annual PCP Team Chronic Disease Visit [facility] Start: 1974 BP Controlled (<130/80) BP Controlled (<130/80) [facility] Start: 1974 Hepatitis B surface antibody level LDL CHOLESTEROL [facility] Start: 1974 HEPATITIS C SCREENING HEPATITIS C SCREENING [facility] Start: 1974 Hepatitis C screening Hepatitis C Screening [facility] Start: 1974 HIV SCREENING HIV SCREENING [facility] Start: 1966 3 comp foot exam completed DIABETIC FOOT EXAM [facility] Start: 1966 Diabetic foot examination [facility] Start: 1966 Hepatitis B screening URINE ALBUMIN:CREATININE RATIO [facility] Start: 1966 Ophthalmic examination and evaluation Diabetes: Retinopathy Screening [facility] Start: 1961 Hemoglobin A1c measurement HbA1C [facility] Start: 1961 Hemoglobin A1c/Hemoglobin.total in Blood HBA1C [facility] Start: 1956 Annual wellness visit Medicare Initial Physical (IPPE) [facility] Start: 1956 Hemoglobin A1c measurement Diabetes: Hemoglobin A1C [facility] Start: 1956 Lipid panel Lipid Panel [facility] Start: 1956 Screening for malignant neoplasm of colon [facility] Start: 1956 Yearly Adult Physical Yearly Adult Physical [facility] Assay of thyroid stimulating hormone tsh TSH - Thyroid Stimulating Hormone, Serum [facility] [employer] Work Phone: Immunizations Immunization Date Immunization Notes Care Provider Denise valejoshua 11-25-2021 Prevnar 20 0.5 ML Intramuscular Suspension Prefilled Syringe; Translations: [Prevnar 20 0.5 ML Intramuscular Suspension Prefilled Syringe] Tali Tran Work Phone: [facility] Work Phone: Payers Date Payer Category Payer Medicare MEDICARE MEDICAR E PART A [id number] 2021-Present [address] [place] [address] [id number] 2021 Unknown 2021 Unknown [id number] 1955 Unknown [id number] 1956 Unknown [id number] 1956 Unknown [id number] 1956 Unknown [id number] Medicare [id number] Social History Date Type Detail Facility Assertion Tobacco smoking consumption unknown (finding) [facility] [employer] Work Phone: Start: 01-04-2023 End: 01-22-2023 Non-smoker Non-smoker -[employer] [facility] Work Phone: Start: 11-11-2020 End: 12-02-2022 Tobacco smoking status NHIS Never smoked tobacco [facility] Start: 11-11-2020 End: 12-02-2022 Tobacco use and exposure Smokeless tobacco non-user [facility] Start: 12-22-2021 End: 01-22-2023 Alcohol intake Ex-drinker (finding) [facility] Start: 1955 Sex Assigned At Not on file [facility] Start: 12-12-2021 End: 02-07-2023 Exposure to SARS-CoV-2 (event) Not sure [facility] Start: 01-04-2023 End: 01-22-2023 Gender identity Not on file [facility] Work Phone: National Score (1-100), lower number is lower risk 60 [facility] NEGATED: Highlighted rowStart: NINF History of tobacco use Passive smoker [facility] Work Phone: Medical Equipment Procedure Code Equipment [...] status health issues are not documented Disease [facility] [employer] Work Phone: Mental Status Date Assessment Result Facility NEGATED: Highlighted row Cognitive function [Interpretation] Cognitive status health issues are not documented Disease [facility] [employer] Work Phone: Clinical Notes 11-23-2019 to 02-07-2023 [...] face. History provided by: Patient and spouse group reservations coordinator used: No Jinny Coma Scale Score: [...] Levin DO 02/07/231610 documented in this encounter [facility] Work Phone: 02-07-2023 Physician Emergency department Note [...] face. History provided by: Patient and spouse group reservations coordinator used: No Jinny Coma Scale Score: [...] worse. Procedure Procedures Kenton Levin DO 02/07/231610 [facility] Work Phone: 01-29-2023 Note HNO ID: [id number] Author: Pedro Luis Fitzgerald MD Service: ? [...] findings, diagnosis, and treatment options. [facility] 01-29-2023 Instructions Pedro Luis Fitzgerald MD - 01/29/2023 4:51 PM EST Continue Valtrex and oral Prednisone as directed by Dr. Tran Continue: Systane Complete Artificial Tears - Use 1 Drop into both eyes three times a day. Begin: Genteal gel, one application at bedtime If you have any questions please contact our office at [phone]. After office hours or on the weekend, please call Dr. Fitzgerald on his cell phone at [phone]. documented in this encounter [facility] 01-29-2023 History of Presen t illness Narrative [...] examination findings, diagnosis, and treatment options with Noe Cole and/or his family. I have also reviewed and agree with the assessment and plan as stated above and agree with all its relevant components. I gave the patient the opportunity to ask questions about the findings, diagnosis, and treatment options. documented in this encounter [facility] 01-25-2023 Note HNO ID: [id number] Author: Sue Lanier OD Service: ? Author Type: TRANSITIONS MANAGER Type: Progress Notes Filed: 01/25/2023 11:57 AM [...] seen and examined this patient. [facility] 01-25-2023 Instructions Sue Lanier OD - 01/25/2023 11:55 AM EST ASSESSMENT/PLAN: 1. HZV (herpes zoster virus) post herpetic neuralgia - ICD9: 053.19, ICD10: B02.29 Current Ophthalmic Meds valACYclovir (VALTREX) 1 gram tablet As directed by Dr. Tran Suggested artificial tears three times a day. Return as directed. documented in this encounter [facility] 01-25-2023 History of Presen t illness Narrative [...] examined this patient. documented in this encounter [facility] 01-22-2023 History of Presen t illness Narrative [...] 10 days, watch blood sugars, recommend seeing sprayer leather. Relevant Medications valACYclovir (Valtrex) 1 gram tablet predniSONE (Deltasone) 10 mg tablet documented in this encounter [facility] Work Phone: 01-04-2023 Note HNO ID: [id number] Author: Sue Lanier OD Service: ? Author Type: TRANSITIONS MANAGER Type: Progress Notes Filed: 01/04/2023 5:44 PM [...] seen and examined this patient. [facility] 01-04-2023 Instructions Sue Lanier, MARIA R [...] yearly dilated exams. documented in this encounter [facility] 01-04-2023 History of Presen t illness Narrative [...] examined this patient. documented in this encounter [facility] 06-02-2022 Evaluation + Plan note Associated Problem(s): Hyperlipemia Lipid profile on blood testing done at [facility] on 06 May was at goal. [facility] Work Phone: 06-02-2022 Evaluation + Plan note Associated Problem(s): Type 2 diabetes mellitus (CMS/HCC) Is currently established with endocrinology that is following on a regular basis, most recent A1c testing was slightly above 8, ophthalmology up-to-date, no issues with his feet. [facility] Work Phone: 06-02-2022 Evaluation + Plan note Associated Problem(s): Erectile dysfunction due to diseases classified elsewhere Discussion today about pathophysiology of erectile dysfunction, was given a prescription for sildenafil 100 mg to try, contact the office if no help [facility] Work Phone: 06-02-2022 Miscellaneous Notes Associated Problem(s): Hyperlipemia Lipid profile on blood testing done at [facility] on 06 May was at goal. Associated [...] microalbumin testing, creatinine on recent testing at [facility] was normal, will continue with current medications. Patient encouraged to check home blood pressures with a goal to be less than 140/90 documented in this encounter [facility] Work Phone: 06-02-2022 Evaluation + Plan note Associated Problem(s): Hypertension Blood pressure marginal, not aware of microalbumin testing, creatinine on recent testing at [facility] was normal, will continue with current medications. Patient encouraged to check home blood pressures with a goal to be less than 140/90 [facility] Work Phone: 06-02-2022 History of Presen t illness Narrative Subjective Patient ID: Neo Cole is a 66 y.o. male who presents for 6 mo labs. HPI No low blood sugars since last OV, seen opthalmology in the past year, and no numbness or tingling in feet, skin normal. Sees Endocrinology ([facility] in [place]) on a regular basis, last A1c 8.4, [...] Primary Care Endocrine/Metabolic Type 2 diabetes mellitus ([facility]/HCC) - Primary Is currently established with endocrinology that is following on a regular basis, most recent A1c testing was slightly above 8, ophthalmology up-to-date, no issues with his feet. Relevant Orders Follow Up In Primary Care Other Hyperlipemia Lipid profile on blood testing done at [facility] on 06 May was at goal. Relevant Orders Follow Up In Primary Care documented in this encounter [facility] Work Phone: 06-02-2022 Instructions Tali Tran MD - 06/02/2022 8:20 AM EDT Try sildenafil as needed documented in this encounter [facility] Work Phone: 12-22-2021 Instructions Sue Lanier OD [...] Recommended yearly exams. documented in this encounter [facility] 12-22-2021 History of Presen t illness Narrative [...] examined this patient. documented in this encounter [facility] 05-23-2020 History of Presen t illness Narrative No low blood sugars since last OV, seen opthalmology in the past year, and no numbness or tingling in feet, skin normal.No headache, chest pain, shortness of breath, dizziness, lightheadedness, or edemaSeen endocrinology in December and a couple of week ago, has F/U in July [facility] Work Phone: 11-23-2019 History of Presen t illness Narrative No low blood sugars since last OV, seen opthalmology in the past year, and no numbness or tingling in feet, skin normal.No headache, chest pain, shortness of breath, dizziness, lightheadedness, or edemastarted using cont. glucose meter for the past 10 days, highest at dinner timeLBS 1-2 in the past 2 weeks [facility] Work Phone: [facility] Type 2 diabetes mellitus without complication, without long-term current use of insulin ([facility])- Primary Mixed hyperlipidemia Primary hypertension Unspecified essential hypertension Erectile dysfunction due to diseases classified elsewhere documented in this encounter [facility] Work Phone: Evaluation note* Diagnosis Type 2 diabetes mellitus without retinopathy (HCC)- Primary Type II or unspecified type diabetes mellitus without mention of complication, not stated as uncontrolled Combined form of senile cataract of both eyes Floaters, bilateral Myopia, bilateral Myopia Regular astigmatism, bilateral Presbyopia [facility] Diagnosis Herpes zoster without complication- Primary Mixed hyperlipidemia Primary hypertension Unspecified essential hypertension documented in this encounter [facility] Work Phone: Evaluation note* Diagnosis HZV (herpes zoster virus) post herpetic neuralgia- Primary Herpes zoster with other nervous system complications [facility] Herpes zoster ophthalmicus, left [...] Unspecified essential hypertension [facility] Diagnosis Postherpetic neuralgia- Primary Herpes zoster with other nervous system complications documented in this encounter [facility] Work Phone: History of Present illness Narrative* [...] below 200, got Dexcom device [facility] Work Phone: Instructions* Name Dates Details Instructions not documented [facility] [employer] Work Phone: Reason for referral (narrative)* Consultation (Routine) - Authorized Specialty Diagnoses / Procedures Referred By Contac t Referred To Contact Primary Care Diagnoses Type 2 diabetes mellitus without complication, without long-term current use of insulin ([facility]) Mixed hyperlipidemia Primary hypertension Erectile dysfunction due to diseases classified elsewhere Procedures Follow Up In Primary Care Tali Tran MD [address] [place] [address] Referral ID Status Reason Start Date Expiration Date V isits Requested Visits Authorized [id number] Authorized 06/02/2022 11/29/2022 1 1 [facility] Work Phone: Summary Purpose Family History Mother [...] Contact Diagnoses Postherpetic neuralgia Kenton Levin, DO [address] [place] [address] Referral ID Status Reason Start Date Expiration Date V isits Requested Visits Authorized [id number] Pending Review 1 1 Additional Source Comments (unrecognized sect ion and content) No Status Records FoundNo Status Records FoundNo Status Records FoundNo Status Records FoundNo Status Records Found INFORMATION SOURCE (unrecogn ized section and content) DATE CREATED AUTHOR AUTHOR'S ORGANIZ ATION 11/25/2021 [facility] DATE CREATED AUTHOR AUTHOR'S ORGANIZ ATION 11/25/2021 [facility] DATE CREATED AUTHOR AUTHOR'S ORGANIZ ATION 01/25/2023 [facility] Ambulatory DATE CREATED AUTHOR AUTHOR'S ORGANIZ ATION 01/31/2023 [facility] Source Comments (unrecognize d section and content) In the event this informatio n is protected by the Federal Confidentiality of Alcohol and Drug Abuse Patient Records regulations: The Federal rules restrict any use of the information to criminally investigate or prosecute any alcohol or drug abuse patient.[facility] the event this information is protected by the Federal Confidentiality of Alcohol and Drug Abuse Patient Records regulations: The Federal rules restrict any use of the information to criminally investigate or prosecute any alcohol or drug abuse patient.[facility] the event this information is protected by the Federal Confidentiality of Alcohol and Drug Abuse Patient Records regulations: The Federal rules restrict any use of the information to criminally investigate or prosecute any alcohol or drug abuse patient.[facility] the event this information is protected by the Federal Confidentiality of Alcohol and Drug Abuse Patient Records regulations: The Federal rules restrict any use of the information to criminally investigate or prosecute any alcohol or drug abuse patient.[facility] the event this information is protected by the Federal Confidentiality of Alcohol and Drug Abuse Patient Records regulations: The Federal rules restrict any use of the information to criminally investigate or prosecute any alcohol or drug abuse patient.[facility] Reason for Visit (unrecogniz ed section and [...] Care Teams (unrecognized sec tion and content) Research Animal Attendant Relationship Specialty Start Date End Date Tali Tran MD [address] [place] [address] PCP - General 07/21/19 Tali Tran MD [address] [place] [address] PCP - Ismael CANELA PCP 02/15/21 Research Animal Attendant Relationship Specialty Start Date End Date Tali Tran MD PCP - General Family Medicine 10/25/20 Research Animal Attendant Relationship Specialty Start Date End Date Tali Tran MD PCP - General 07/21/19 Tali Tran MD [address] [place] [address] PCP - Ismael CANELA PCP 02/15/21 Research Animal Attendant Relationship Specialty Start Date End Date Tali Tran MD PCP - General Family Medicine 10/25/20 Research Animal Attendant Relationship Specialty Start Date End Date Tali Tran MD PCP - General Family Medicine 10/25/20 Research Animal Attendant Relationship Specialty Start Date End Date Tali Tran MD PCP - General Family Medicine 10/25/20 Sue Lanier OD [address] [place] [address] Optometry 01/29/23 Research Animal Attendant Relationship Specialty Start Date End Date Tali Tran MD [address] [place] [address] PCP - [facility] PCP 02/15/21 Tali Tran MD [address] [place] [address] PCP - General Family Medicine 02/07/23 Scheduled [...] BE BASED ON THE PRIMARY CLINICAL RECORDS. [employer] provides no warranty or guarantee of the accuracy or completeness of information in this document.
== END 2023-02-13 08:06 | disposition home or self-care (01) ==
PROVIDERS: Emergency Provider Emergency Medicine; PCP Family Medicine; Visit Provider Emergency Medicine
DX: B02.29 Other postherpetic nervous system involvement (principal); E11.9 Type 2 diabetes mellitus without complications; I10 Essential (primary) hypertension; E78.00 Pure hypercholesterolemia, unspecified
CPT/HCPCS: 96372; 99282